=== PATIENT | male | born 1965 | race Caucasian/White ===

== ENCOUNTER 2017-08-03 15:05 | Inpatient (IN) | payer SELFPAY ==
[~2017-08-03] VITALS: Ht 175.3 cm; Wt 58.6 kg
--- NOTE | ~2017-08-03 | EC ---
PATIENT:DANIA LANDRUM DATE OF SERVICE: 08/03/17 SEX: M MEDICAL RECORD: [id number] DATE OF : 69 LOCATION:D.M2 D.213 AGE OF PATIENT: 52 ADMISSION DATE: 08/03/17 REFERRING PHYSICIAN: INTERPRETING PHYSICIAN: XIN MARISCAL MD ECHOCARDIOGRAM REPORT ECHO CHARGES 4 ECHO COMPLETE CLINICAL DIAGNOSIS: A-FIB ECHOCARDIOGRAPHIC MEASUREMENTS (adult normal given) AC root (d.<3.7cm) 3.5 cm LV Septum d (<1.2 cm> 0.9 cm Valve Excursion 1.8 cm LV Septum (systole) 1.4 cm Left Atria (s.<4.0cm> 3.3 cm LVPW d(<1.2cm) 1.1 cm RV (d.<2.3cm) 2.1 cm LVPW (sytole) 1.6 cm LV diastole(<5.6CM) 4.7 cm MV E-F(>70mm/sec) cm LV systole 2.7 cm LVOT Diameter 2.1 cm MV exc.(>10mm) cm Est.ejection fraction (50-75%) % Pericardial Effusion N DOPPLER: LVIT cm/sec A 50.0 cm/sec E 90.0 cm/sec LA cm/sec RVSP 23.4 mmHg LVOT 172 cm/sec AOP1/2T m/s Asc. Ao 165 cm/sec RVOT 45.0 cm/sec RA cm/sec PA 109 cm/sec AV Gradient Peak 11.0 mmHg AV Mean 5.7 mmHg AV Area 3.0 cm MV Gradient Peak 4.4 mmHg MV Mean 1.8 mmHg MV Area cm COMMENTS: Press Box Custodian: Ashwini MEADOWSOE Social Media Marketing Specialist: 4 Dr. Mariscal TAPE# PACS DATE OF SERVICE: 08/04/2017 PROCEDURE: Transthoracic echocardiogram. FINDINGS: 1. The left ventricle is hyperdynamic with evidence of mild concentric left ventricular hypertrophy with inflow characteristics that are normal. The ejection fraction is 65% to 70% without regional wall motion abnormalities. 2. The left atrium is normal in size and normal in function. 3. The aortic valve is normal. ECHOCARDIOGRAM REPORT [id number] DANIA LANDRUM 4. The mitral valve is normal. 5. The tricuspid valve has trace tricuspid regurgitation. The RVSP is normal. 6. The pericardium is normal. 7. The pulmonic valve is normal. 8. The right atrium is normal. 9. The right ventricle is normal in size and function. CONCLUSION: The patient has evidence of hyperdynamic LV systolic function. There is some hint that the patient may be volume contracted by IVC that looks to be smaller. Otherwise, normal echocardiogram. TRANSINT:[id number] Voice Confirmation ID: [id number] DOCUMENT ID: [id number] 08/10/2017 Edited to correct date of service, dm. XIN MARISCAL MD at 1038 CC: [id number] DICTATION DATE: 08/05/17 1020 COMPOSITION ROLL MAKER AND CUTTER: 08/05/17 1117 DIS IN 08/14/17 [address] [id number] [place] [address]
--- NOTE | ~2017-08-03 | HP ---
PATIENT: DANIA LANDRUM MEDICAL RECORD: [id number] ACCOUNT: [id number] LOCATION:[facility] D.2309 : 69 ADMISSION DATE: 08/03/17 HISTORY AND PHYSICAL EXAMINATION HISTORY OF PRESENT ILLNESS: A 52-year-old male presented to the Emergency Room upon day of admission with complaint of tachycardia and not feeling well for the last week and a half. Patient was evaluated in the Emergency Room and was found to have evidence of left lower lobe pneumonia and the patient needs to be hospitalized for appropriate intervention. The patient was also found on laboratory be in DKA. He is a type 1 diabetic and has been having difficulty with his sugars over the last week. He states he has had fever, chills, and been trying to working away. He is presently an ill-appearing 52-year-old male that is mildly confused and most of the information was obtained from old chart and family members. PAST MEDICAL HISTORY: Significant for pancreatitis, type 1 diabetes mellitus, and arrhythmia. PAST SURGICAL HISTORY: Includes a Whipple procedure. SOCIAL HISTORY: The patient quit smoking 2 weeks ago. He denies any alcohol use. ALLERGIES: No known drug allergies. MEDICATIONS: Listed on MAR sheet. REVIEW OF SYSTEMS: Indicates he has had fever, chills, cough, nausea, and vomiting. He also has had diarrhea. He has had thick emesis, but no bright red blood over the last 24 hours. PHYSICAL EXAMINATION: GENERAL: The patient is a malnourished, thin, frail, 52-year-old male with respiratory distress. VITAL SIGNS: Pulse ox is 90% on 4 liters. HEENT: His pupils are equal, round, reactive to light. Extraocular movements are intact. Oral cavity and oropharynx shows tacky mucous membranes. NECK: No cervical or pharyngeal adenopathy. No nuchal rigidity. HEART: Regular rate and rhythm with a tachyarrhythmia. CHEST: He has evidence of AFib with rapid response on the telemetry, heart rate initially was 140. He is on a Cardizem drip at the present time. LUNGS: Have coarse rhonchi heard in all lung cabral with diminished in the left base. ABDOMEN: Soft. Surgical scars noted, nontender, positive bowel sounds. No hepatosplenomegaly, no masses. EXTREMITIES: Cachectic type appearance noted. LABORATORY DATA: Chest x-ray shows left lower lobe infiltrate. EKG shows atrial fibrillation with rapid response. ABGs show pH 7.23, pCO2 of 31, pO2 of 71, bicarbonate 14 and 9% saturation. White count 6000, H&H 17 and 49 and platelets of 125, BUN is 40, creatinine 1.8, glucose of 596. Sodium is low at 129, CO2 of 15. Elevated liver functions are noted with an ALT of 123. AST of 105. Lactic acid is 2.8. HISTORY AND PHYSICAL [id number] DANIA LANDRUM ASSESSMENT AND PLAN: 1. Pneumonia. 2. Type 1 diabetes mellitus. 3. Diabetic ketoacidosis. 4. Hyponatremia. 5. Pneumonia. 6. Flu is positive. 7. Malnutrition. 8. Sepsis. 9. Hypoxia. 10. Weight loss. PLAN: The patient will be admitted to the ICU and start insulin drip, updraft treatments. He has already received Rocephin and Levaquin. We will start vancomycin 1 gram times 1 dose and pulmonary consultation for critical care with Dr. Adams. I have discussed the case with him. The patient is on insulin drip, IV fluids, vigorously. We will check laboratory appropriately and follow the patient. TRANSINT:[id number] Voice Confirmation ID: [id number] DOCUMENT ID: [id number] CASSI HUDDLESTON MD at 1613 CC: [id number] DICTATION DATE: 08/03/171904 MARKETING UNDERWRITER: 08/03/172000 ADM IN [facility] [address] [place] [address]
[2017-08-03 15:58] LABS: BASOPHILS 0.3 % (0-2); EOSINOPHILS 0 % (0-7); HEMATOCRIT 49.9 % (42.0-54.0); IMMATURE GRANULOCYTES 0.3 % (0-5); LYMPHOCYTES 6.7 % (15-50); MCH 31.4 pg (26.0-34.0); MCHC 34.1 g/dL (31.0-37.0); MCV 92.1 fL (80.0-100.0); MEAN PLATELET VOLUME 12.6 fL (7.4-10.4); MONOCYTES 11.1 % (2-11); NEUTROPHILS 81.6 % (40-80); RBC 5.42 10x6/uL (4.20-6.10); RDW 13.7 % (11.5-14.5); WBC 6.4 10x3/uL (4.8-10.8)
[2017-08-03 16:00] LABS: PLATELET COUNT 125 10x3/uL (130-400)
[2017-08-03 16:23] LABS: ALBUMIN 3.1 g/dL (3.4-5.0); ANION GAP 29.5 mmol/L (8-16); BILIRUBIN - TOTAL 1.29 mg/dL (0.2-1.3); CALCIUM 10.2 mg/dL (8.5-10.1); CARBON DIOXIDE 15.3 mmol/L (21.0-32.0); CREATININE - SERUM 1.8 mg/dL (0.6-1.3); POTASSIUM - SERUM 4.8 mmol/L (3.5-5.1); PROTEIN - SERUM 7.1 g/dL (6.4-8.2)
[2017-08-03 16:45] LABS: TROPONIN-I 0.028 ng/mL (0.000-0.060)
[2017-08-03 20:57] LABS: CKMB 5.9 U/L (0.0-3.6); CREATINE KINASE 203 UL (21-232)
[2017-08-03 21:00] VITALS: BP 144/97
[2017-08-03 22:00] VITALS: BP 124/72
[2017-08-03 23:00] VITALS: BP 126/78
[2017-08-03 23:39] VITALS: BP 153/97; BMI 18.5
[2017-08-04] VITALS (24 sets, daily range): BP systolic 95–146; BP diastolic 61–87; Ht 175.3 cm; Wt 58.6 kg
[2017-08-04 04:15] LABS: BASOPHILS 0.5 % (0-2); EOSINOPHILS 0 % (0-7); HEMATOCRIT 43.5 % (42.0-54.0); HEMOGLOBIN 15.5 g/dL (13.5-17.5); HEMOGLOBIN A1C 9.8 % (4.8-6.0); IMMATURE GRANULOCYTES 0.7 % (0-5); LYMPHOCYTES 9.8 % (15-50); MCH 30.9 pg (26.0-34.0); MCHC 35.6 g/dL (31.0-37.0); MCV 86.8 fL (80.0-100.0); MEAN PLATELET VOLUME 11.8 fL (7.4-10.4); MONOCYTES 3.1 % (2-11); NEUTROPHILS 85.9 % (40-80); PLATELET COUNT 102 10x3/uL (130-400); RBC 5.01 10x6/uL (4.20-6.10); RDW 12.9 % (11.5-14.5); WBC 4.2 10x3/uL (4.8-10.8)
[2017-08-04 04:44] LABS: ALBUMIN 2.4 g/dL (3.4-5.0); ALKALINE PHOSPHATASE 74 U/L (46-116); AMYLASE - SERUM 6 U/L (25-115); BILIRUBIN - TOTAL 0.84 mg/dL (0.2-1.3); CALCIUM 8.9 mg/dL (8.5-10.1); CHLORIDE - SERUM 105 mmol/L (98-107); MAGNESIUM - SERUM 1.5 mg/dL (1.8-2.4); PRO BNP 4481 pg/mL (0-125); SODIUM 140 mmol/L (136-145); VANCOMYCIN - TROUGH 5.5 ug/mL (10.0-20.0)
[2017-08-04 04:49] LABS: ALT (SGPT) 81 U/L (10-68); CALC OSMOLALITY 283 mosm/kg (275-300); CARBON DIOXIDE 26.4 mmol/L (21.0-32.0); CREATINE KINASE 111 UL (21-232); CREATININE - SERUM 0.8 mg/dL (0.6-1.3); GLUCOSE 134 mg/dL (74-106); LIPASE 29 U/L (73-393); PHOSPHOROUS 1.1 mg/dL (2.5-4.9); POTASSIUM - SERUM 3.3 mmol/L (3.5-5.1); PROTEIN - SERUM 5.1 g/dL (6.4-8.2); TROPONIN-I 0.044 ng/mL (0.000-0.060); UREA NITROGEN 20 mg/dL (7-18); eGFR NON AFRICAN AMERICAN > 90 mL/min (90-120)
[2017-08-04 08:43] LABS: CKMB 1.7 U/L (0.0-3.6); CREATINE KINASE 67 UL (21-232); TROPONIN-I 0.035 ng/mL (0.000-0.060)
[2017-08-04] MEDS ORDERED: ZOLOFT50 MG PO (10:21)
[2017-08-04] MEDS ORDERED: ZENPEP DR 5,001 EACH PO (10:21)
[2017-08-04] MEDS ORDERED: GLUCOPHAGE1000 MG PO (10:22)
[2017-08-04] MEDS ORDERED: AMBIEN10 MG PO (18:35)
[2017-08-04] MEDS ORDERED: VIAGRA100 MG PO (18:38)
[2017-08-04] MEDS ORDERED: TOUJEO SOL300 UNIT/1 SC (18:39)
[2017-08-04] MEDS ORDERED: HUMALOG 30100 UNITS/ SC (18:39)
[2017-08-04] MEDS ORDERED: HYDROCODONE-APA1 TAB PO (18:39)
[2017-08-04 20:16] LABS: POTASSIUM - SERUM 3.6 mmol/L (3.5-5.1)
[2017-08-04 20:17] LABS: PHOSPHOROUS 1.7 mg/dL (2.5-4.9)
[2017-08-05] VITALS (24 sets, daily range): BP systolic 107–139; BP diastolic 72–93
[2017-08-05 04:24] LABS: BASOPHILS 0.8 % (0-2); EOSINOPHILS 0 % (0-7); HEMATOCRIT 38.5 % (42.0-54.0); HEMOGLOBIN 13.7 g/dL (13.5-17.5); LYMPHOCYTES 7.6 % (15-50); MCH 30.8 pg (26.0-34.0); MCHC 35.6 g/dL (31.0-37.0); MCV 86.5 fL (80.0-100.0); MEAN PLATELET VOLUME 12.1 fL (7.4-10.4); MONOCYTES 3.9 % (2-11); NEUTROPHILS 86.7 % (40-80); PLATELET COUNT 95 10x3/uL (130-400); RBC 4.45 10x6/uL (4.20-6.10); RDW 13.1 % (11.5-14.5)
[2017-08-05 04:27] LABS: WBC 7.9 10x3/uL (4.8-10.8)
[2017-08-05 04:49] LABS: ALKALINE PHOSPHATASE 86 U/L (46-116); ALT (SGPT) 64 U/L (10-68); BILIRUBIN - TOTAL 0.96 mg/dL (0.2-1.3); CALC OSMOLALITY 282 mosm/kg (275-300); CALCIUM 8.5 mg/dL (8.5-10.1); CARBON DIOXIDE 25.2 mmol/L (21.0-32.0); CHLORIDE - SERUM 105 mmol/L (98-107); CREATININE - SERUM 0.7 mg/dL (0.6-1.3); GLUCOSE 166 mg/dL (74-106); MAGNESIUM - SERUM 1.4 mg/dL (1.8-2.4); POTASSIUM - SERUM 3.2 mmol/L (3.5-5.1); PROTEIN - SERUM 5.3 g/dL (6.4-8.2); SODIUM 140 mmol/L (136-145); eGFR NON AFRICAN AMERICAN > 90 mL/min (90-120)
[2017-08-05 04:50] LABS: PHOSPHOROUS 1.5 mg/dL (2.5-4.9); UREA NITROGEN 12 mg/dL (7-18)
[2017-08-06] VITALS (23 sets, daily range): BP systolic 96–148; BP diastolic 62–99
[2017-08-06 05:20] LABS: BASOPHILS 0.5 % (0-2); EOSINOPHILS 0.2 % (0-7); HEMATOCRIT 37.6 % (42.0-54.0); HEMOGLOBIN 13.3 g/dL (13.5-17.5); IMMATURE GRANULOCYTES 0.3 % (0-5); LYMPHOCYTES 8.1 % (15-50); MCHC 35.4 g/dL (31.0-37.0); MCV 87.6 fL (80.0-100.0); MONOCYTES 5.2 % (2-11); NEUTROPHILS 85.7 % (40-80); PLATELET COUNT 96 10x3/uL (130-400); RBC 4.29 10x6/uL (4.20-6.10); RDW 13.3 % (11.5-14.5)
[2017-08-06 05:27] LABS: WBC 9.9 10x3/uL (4.8-10.8)
[2017-08-06 05:44] LABS: INR 1.45 (0.85-1.17); PROTIME 17.2 SECONDS (11.6-15.0)
[2017-08-06 05:45] LABS: APTT 47.7 SECONDS (22.8-39.4)
[2017-08-06 05:59] LABS: D-DIMER-QUANTITATIVE 4.02 ug/mLFEU (0.20-0.54)
[2017-08-06 06:02] LABS: ALBUMIN 1.8 g/dL (3.4-5.0); ALKALINE PHOSPHATASE 110 U/L (46-116); BILIRUBIN - TOTAL 1.04 mg/dL (0.2-1.3); CALCIUM 7.8 mg/dL (8.5-10.1); CARBON DIOXIDE 24.2 mmol/L (21.0-32.0); CHLORIDE - SERUM 104 mmol/L (98-107); CREATININE - SERUM 0.7 mg/dL (0.6-1.3); LDH 278 U/L (85-227); MAGNESIUM - SERUM 1.6 mg/dL (1.8-2.4); PROTEIN - SERUM 5.2 g/dL (6.4-8.2); SODIUM 139 mmol/L (136-145); eGFR NON AFRICAN AMERICAN > 90 mL/min (90-120)
[2017-08-06 06:04] LABS: ALT (SGPT) 47 U/L (10-68); CALC OSMOLALITY 287 mosm/kg (275-300); GLUCOSE 263 mg/dL (74-106); PHOSPHOROUS 2.5 mg/dL (2.5-4.9); UREA NITROGEN 16 mg/dL (7-18)
[2017-08-07] VITALS (11 sets, daily range): BP systolic 105–134; BP diastolic 58–87
[2017-08-07 04:30] LABS: BASOPHILS 0.2 % (0-2); EOSINOPHILS 0.5 % (0-7); HEMATOCRIT 38.3 % (42.0-54.0); HEMOGLOBIN 13.6 g/dL (13.5-17.5); IMMATURE GRANULOCYTES 0.5 % (0-5); LYMPHOCYTES 7.9 % (15-50); MCHC 35.5 g/dL (31.0-37.0); MCV 87.2 fL (80.0-100.0); MEAN PLATELET VOLUME 11.1 fL (7.4-10.4); MONOCYTES 5.8 % (2-11); NEUTROPHILS 85.1 % (40-80); PLATELET COUNT 91 10x3/uL (130-400); RBC 4.39 10x6/uL (4.20-6.10); RDW 13.4 % (11.5-14.5)
[2017-08-07 04:53] LABS: CALCIUM 7.4 mg/dL (8.5-10.1); CARBON DIOXIDE 28.5 mmol/L (21.0-32.0); CHLORIDE - SERUM 103 mmol/L (98-107); CREATININE - SERUM 0.7 mg/dL (0.6-1.3); MAGNESIUM - SERUM 1.7 mg/dL (1.8-2.4); POTASSIUM - SERUM 3.6 mmol/L (3.5-5.1); SODIUM 138 mmol/L (136-145); eGFR NON AFRICAN AMERICAN > 90 mL/min (90-120)
[2017-08-07 04:55] LABS: CALC OSMOLALITY 279 mosm/kg (275-300); GLUCOSE 189 mg/dL (74-106); PHOSPHOROUS 3.3 mg/dL (2.5-4.9); UREA NITROGEN 11 mg/dL (7-18)
[2017-08-08 04:00] VITALS: BP 130/72
[2017-08-08 09:03] VITALS: BP 121/77
[2017-08-08 13:25] VITALS: BP 121/73
[2017-08-08 16:39] VITALS: BP 116/70
[2017-08-08 19:00] VITALS: BP 131/81
[2017-08-09 04:00] VITALS: BP 135/81
[2017-08-09 05:54] LABS: BASOPHILS 0.1 % (0-2); EOSINOPHILS 0.7 % (0-7); HEMATOCRIT 35.5 % (42.0-54.0); HEMOGLOBIN 12.8 g/dL (13.5-17.5); IMMATURE GRANULOCYTES 0.6 % (0-5); LYMPHOCYTES 8.3 % (15-50); MCH 31.1 pg (26.0-34.0); MCHC 36.1 g/dL (31.0-37.0); MCV 86.2 fL (80.0-100.0); MEAN PLATELET VOLUME 11.5 fL (7.4-10.4); NEUTROPHILS 86.3 % (40-80); RBC 4.12 10x6/uL (4.20-6.10); RDW 13.3 % (11.5-14.5); WBC 11.9 10x3/uL (4.8-10.8)
[2017-08-09 06:02] LABS: PLATELET COUNT 118 10x3/uL (130-400)
[2017-08-09 06:12] LABS: CALC OSMOLALITY 265 mosm/kg (275-300); CALCIUM 7.2 mg/dL (8.5-10.1); CHLORIDE - SERUM 100 mmol/L (98-107); CREATININE - SERUM 0.6 mg/dL (0.6-1.3); POTASSIUM - SERUM 3.3 mmol/L (3.5-5.1); SODIUM 134 mmol/L (136-145); UREA NITROGEN 7 mg/dL (7-18); eGFR NON AFRICAN AMERICAN > 90 mL/min (90-120)
[2017-08-09 06:26] LABS: GLUCOSE 94 mg/dL (74-106)
[2017-08-09 08:33] VITALS: BP 120/76
[2017-08-09 12:03] VITALS: BP 117/75
[2017-08-09 16:02] VITALS: BP 115/75
[2017-08-09 21:43] VITALS: BP 118/69
[2017-08-10 06:18] LABS: BASOPHILS 0.1 % (0-2); EOSINOPHILS 0.5 % (0-7); HEMATOCRIT 37.9 % (42.0-54.0); HEMOGLOBIN 13.3 g/dL (13.5-17.5); IMMATURE GRANULOCYTES 0.6 % (0-5); LYMPHOCYTES 7.1 % (15-50); MCH 30.6 pg (26.0-34.0); MCHC 35.1 g/dL (31.0-37.0); MCV 87.3 fL (80.0-100.0); MONOCYTES 3.5 % (2-11); NEUTROPHILS 88.2 % (40-80); PLATELET COUNT 129 10x3/uL (130-400); RBC 4.34 10x6/uL (4.20-6.10); RDW 13.3 % (11.5-14.5); WBC 15.7 10x3/uL (4.8-10.8)
[2017-08-10 06:34] LABS: CALC OSMOLALITY 269 mosm/kg (275-300); CALCIUM 7.1 mg/dL (8.5-10.1); CARBON DIOXIDE 25.8 mmol/L (21.0-32.0); CHLORIDE - SERUM 104 mmol/L (98-107); CREATININE - SERUM 0.6 mg/dL (0.6-1.3); GLUCOSE 98 mg/dL (74-106); SODIUM 136 mmol/L (136-145); UREA NITROGEN 6 mg/dL (7-18); eGFR NON AFRICAN AMERICAN > 90 mL/min (90-120)
[2017-08-10 06:35] LABS: POTASSIUM - SERUM 4.2 mmol/L (3.5-5.1)
[2017-08-10 06:45] VITALS: BP 131/69
[2017-08-10 08:28] VITALS: BP 107/70
[2017-08-10 12:48] VITALS: BP 99/69
[2017-08-10 16:09] VITALS: BP 95/62
[2017-08-10 23:00] VITALS: BP 115/69
[2017-08-11 06:23] VITALS: BP 114/73
[2017-08-11 07:48] LABS: BASOPHILS 0.1 % (0-2); EOSINOPHILS 0.3 % (0-7); HEMATOCRIT 33.9 % (42.0-54.0); HEMOGLOBIN 11.8 g/dL (13.5-17.5); IMMATURE GRANULOCYTES 0.4 % (0-5); LYMPHOCYTES 6.7 % (15-50); MCH 30.6 pg (26.0-34.0); MCHC 34.8 g/dL (31.0-37.0); MCV 87.8 fL (80.0-100.0); MEAN PLATELET VOLUME 10.7 fL (7.4-10.4); MONOCYTES 2.7 % (2-11); NEUTROPHILS 89.8 % (40-80); PLATELET COUNT 149 10x3/uL (130-400); RBC 3.86 10x6/uL (4.20-6.10); RDW 13.4 % (11.5-14.5); WBC 14.4 10x3/uL (4.8-10.8)
[2017-08-11 07:59] LABS: CALCIUM 7.2 mg/dL (8.5-10.1); CARBON DIOXIDE 29.1 mmol/L (21.0-32.0); CHLORIDE - SERUM 100 mmol/L (98-107); PHOSPHOROUS 2.8 mg/dL (2.5-4.9); POTASSIUM - SERUM 4.1 mmol/L (3.5-5.1); SODIUM 132 mmol/L (136-145)
[2017-08-11 08:00] VITALS: BP 125/76
[2017-08-11 08:00] LABS: CALC OSMOLALITY 272 mosm/kg (275-300); CREATININE - SERUM 0.8 mg/dL (0.6-1.3); GLUCOSE 268 mg/dL (74-106); UREA NITROGEN 10 mg/dL (7-18); eGFR NON AFRICAN AMERICAN > 90 mL/min (90-120)
[2017-08-11 12:00] VITALS: BP 109/73
[2017-08-11 16:00] VITALS: BP 93/53
[2017-08-11 21:36] VITALS: BP 101/64
[2017-08-12 01:29] VITALS: BP 105/64
[2017-08-12 05:37] LABS: BASOPHILS 0.1 % (0-2); EOSINOPHILS 0.2 % (0-7); HEMATOCRIT 34.9 % (42.0-54.0); HEMOGLOBIN 12.1 g/dL (13.5-17.5); IMMATURE GRANULOCYTES 0.2 % (0-5); MCH 30.6 pg (26.0-34.0); MCHC 34.7 g/dL (31.0-37.0); MCV 88.1 fL (80.0-100.0); MEAN PLATELET VOLUME 10.8 fL (7.4-10.4); MONOCYTES 3.1 % (2-11); NEUTROPHILS 89.4 % (40-80); RBC 3.96 10x6/uL (4.20-6.10); RDW 13.1 % (11.5-14.5); WBC 16.4 10x3/uL (4.8-10.8)
[2017-08-12 05:40] LABS: PLATELET COUNT 184 10x3/uL (130-400)
[2017-08-12 05:50] LABS: CALC OSMOLALITY 267 mosm/kg (275-300); CARBON DIOXIDE 26.9 mmol/L (21.0-32.0); CHLORIDE - SERUM 100 mmol/L (98-107); CREATININE - SERUM 0.7 mg/dL (0.6-1.3); GLUCOSE 193 mg/dL (74-106); POTASSIUM - SERUM 4.2 mmol/L (3.5-5.1); SODIUM 132 mmol/L (136-145); UREA NITROGEN 8 mg/dL (7-18); eGFR NON AFRICAN AMERICAN > 90 mL/min (90-120)
[2017-08-12 06:13] LABS: APPEARANCE CLEAR (CLEAR); BILIRUBIN NEGATIVE (NEGATIVE); COLOR STRAW (YELLOW); GLUCOSE NEGATIVE (NEGATIVE); KETONE NEGATIVE (NEGATIVE); NITRITE NEGATIVE (NEGATIVE); PROTEIN NEGATIVE (NEGATIVE); SPECIFIC GRAVITY 1.005 (1.005-1.020); UROBILINOGEN NORMAL (NORMAL)
[2017-08-12 10:22] VITALS: BP 97/69
[2017-08-12 13:30] VITALS: BP 88/60
[2017-08-12 13:42] VITALS: BP 80/49
[2017-08-12 15:39] VITALS: BP 102/60
[2017-08-12 20:00] VITALS: BP 98/65
[2017-08-13] VITALS: BP 111/75
[2017-08-13 04:00] VITALS: BP 118/74
[2017-08-13 06:18] LABS: BASOPHILS 0.1 % (0-2); EOSINOPHILS 0.4 % (0-7); HEMATOCRIT 34.9 % (42.0-54.0); IMMATURE GRANULOCYTES 0.4 % (0-5); LYMPHOCYTES 8.3 % (15-50); MCH 30.8 pg (26.0-34.0); MCHC 34.4 g/dL (31.0-37.0); MCV 89.7 fL (80.0-100.0); MEAN PLATELET VOLUME 11.1 fL (7.4-10.4); MONOCYTES 4.4 % (2-11); NEUTROPHILS 86.4 % (40-80); PLATELET COUNT 206 10x3/uL (130-400); RBC 3.89 10x6/uL (4.20-6.10); RDW 13.3 % (11.5-14.5); WBC 16.1 10x3/uL (4.8-10.8)
[2017-08-13 06:40] LABS: CALC OSMOLALITY 269 mosm/kg (275-300); CALCIUM 7.5 mg/dL (8.5-10.1); CARBON DIOXIDE 25.9 mmol/L (21.0-32.0); CHLORIDE - SERUM 102 mmol/L (98-107); CREATININE - SERUM 0.7 mg/dL (0.6-1.3); SODIUM 135 mmol/L (136-145); UREA NITROGEN 10 mg/dL (7-18); eGFR NON AFRICAN AMERICAN > 90 mL/min (90-120)
[2017-08-13 06:49] LABS: GLUCOSE 115 mg/dL (74-106)
[2017-08-13 08:04] VITALS: BP 112/73
[2017-08-13 12:09] VITALS: BP 98/57
[2017-08-13 16:28] VITALS: BP 98/68
[2017-08-13 20:00] VITALS: BP 105/66
[2017-08-14 04:00] VITALS: BP 100/66
[2017-08-14 08:14] VITALS: BP 108/72
[2017-08-14] MEDS ORDERED: FLORAJEN3 CAPS460 MG PO (12:51)
[2017-08-14] MEDS ORDERED: LEVAQUIN750 MG PO (13:01)
[2017-08-14] MEDS ORDERED: VIBRAMYCIN 100100 MG PO (13:01)
[2017-08-14] MEDS ORDERED: ELIQUIS2.5 MG PO (13:26)
[2017-08-14 13:27] LABS: BASOPHILS 0.2 % (0-2); EOSINOPHILS 0.3 % (0-7); HEMATOCRIT 35.5 % (42.0-54.0); IMMATURE GRANULOCYTES 0.3 % (0-5); LYMPHOCYTES 13.2 % (15-50); MCH 30.5 pg (26.0-34.0); MCHC 33.8 g/dL (31.0-37.0); MCV 90.1 fL (80.0-100.0); MEAN PLATELET VOLUME 9.9 fL (7.4-10.4); RBC 3.94 10x6/uL (4.20-6.10); RDW 13.1 % (11.5-14.5); WBC 12.8 10x3/uL (4.8-10.8)
[2017-08-14 13:36] LABS: PLATELET COUNT 249 10x3/uL (130-400)
[2017-08-14 14:13] LABS: CALC OSMOLALITY 270 mosm/kg (275-300); CALCIUM 7.4 mg/dL (8.5-10.1); CARBON DIOXIDE 27.9 mmol/L (21.0-32.0); CHLORIDE - SERUM 101 mmol/L (98-107); GLUCOSE 130 mg/dL (74-106); POTASSIUM - SERUM 3.6 mmol/L (3.5-5.1); SODIUM 135 mmol/L (136-145); UREA NITROGEN 10 mg/dL (7-18)
[2017-08-14 14:21] LABS: CREATININE - SERUM 0.9 mg/dL (0.6-1.3); eGFR NON AFRICAN AMERICAN > 90 mL/min (90-120)
== END 2017-08-14 15:23 | disposition home or self-care (01) | DRG 871 ==
LOC: D.ER 15:05 → D.M2 17:31 → D.ICU 17:31 → D.M2 08-07 14:30
PROVIDERS: Emergency Medicine; Family Medicine; Internal Medicine Nephrology; Internal Medicine Pulmonary Disease
DX: A41.89 Other specified sepsis (principal); J11.00 Influenza due to unidentified influenza virus with unspecified type of pneumonia; E10.10 Type 1 diabetes mellitus with ketoacidosis without coma; J96.01 Acute respiratory failure with hypoxia; E46 Unspecified protein-calorie malnutrition; Z68.1 Body mass index [BMI] 19.9 or less, adult; E87.1 Hypo-osmolality and hyponatremia; N17.9 Acute kidney failure, unspecified; J11.2 Influenza due to unidentified influenza virus with gastrointestinal manifestations; J11.1 Influenza due to unidentified influenza virus with other respiratory manifestations; I48.91 Unspecified atrial fibrillation; D69.59 Other secondary thrombocytopenia

== ENCOUNTER 2018-01-15 12:06 | Inpatient (IN) | payer SELFPAY ==
[~2018-01-15] VITALS: Ht 175.3 cm; Wt 59.5 kg
--- NOTE | ~2018-01-15 | OP ---
PATIENT NAME: DANIA LANDRUM MEDICAL RECORD: [id number] :69 LOCATION:D.MS [facility]221[place]a ADMISSION DATE:01/15/18 SURGEON: CAMI HOFFMANN MD DATE OF OPERATION: 01/18/2018 PREOPERATIVE DIAGNOSIS: Persistent left pneumothorax. POSTOPERATIVE DIAGNOSIS: Persistent left pneumothorax. PROCEDURE: Left 28-Syriac chest tube placement. SURGEON: Cami Hoffmann MD COMPENSATION AND BENEFITS MANAGER: None. BLOOD LOSS: Minimal. ANESTHESIA: Local with IV sedation. COMPLICATIONS: None. The risks, possible complications and alternatives to procedure were explained to the patient. He elects to proceed. I specifically discussed with him the possibility that the air leak would not resolve and he would require an operative procedure. OPERATIVE COURSE: The patient was conveyed to the operating room electively on 01/18/2018. General anesthesia was induced by the anesthesia staff. The patient was placed in the semi-lateral decubitus position with the left side up. The left chest was sterilely prepped and draped. I cut the sutures to the unwilling interventional radiologic placed chest tube. I then removed this chest tube in its entirety. I closed the small hole with a horizontal mattress 4-0 Vicryl Rapide suture. A transverse incision was then accomplished at approximately the level of the 7th intercostal space. I then entered the left hemithorax over a rib. I place my gloved finger into the left hemithorax and was able to feel the lung. I then advanced a 28-Syriac chest tube. It was advanced to 16 cm. It was sutured in place with a horizontal mattress 2-0 nylon and then another 2-0 nylon was applied around this for closure. The closure nylon was then affixed to the chest tube with bone wax. The chest tube was attached to the chest tube suction canister and a sterile dressing was applied. The patient was then conveyed to post-anesthesia care unit where he was in stable condition. TRANSINT:[id number] Voice Confirmation ID: [id number] DOCUMENT ID: [id number] OPERATIVE REPORT [id number] DANIA LANDRUM ROBERT MD at 1746 CC: NEHAL TURPIN [id number] DICTATION DATE: 01/18/18 1252 CARTON STENCILER: 01/18/18 1335 ADM IN [place] [address] [place] [address]
--- NOTE | ~2018-01-15 | OP ---
PATIENT NAME: DANIA LANDRUM MEDICAL RECORD: [id number] :69 LOCATION:[facility] ADMISSION DATE:01/15/18 SURGEON: SANTOS LYNCH MD DATE OF OPERATION: 01/23/2018 SURGEON: Santos yLnch MD WASTEWATER ANALYST: Willi Meyer MD ANESTHESIA: General endotracheal. OPERATION PERFORMED: 1. Left video-assisted thoracoscopy. 2. Lysis of adhesions. 3. Bleb resection, left upper lobe. 4. Lung biopsy, left lower lobe. 5. Bronchoscopy with bronchioalveolar lavage, right upper lobe. PREOPERATIVE DIAGNOSIS: Bronchopleural fistula. POSTOPERATIVE DIAGNOSIS: Bronchopleural fistula. INDICATION FOR OPERATION: Bronchopleural fistula. FINDINGS OF THE OPERATION: Blebs with air leak, left upper lobe. Specimens were sent for tissue cultures, aerobe, anaerobe, TB, and fungus. Bronchioalveolar lavage was sent for cultures, cytology was performed on the bronchioalveolar lavage and histology on the bleb resection and left lower lobe. ESTIMATED BLOOD LOSS: Less than 100 mL. DESCRIPTION OF PROCEDURE: After informed consent, adequate preoperative medication evaluation, the patient was brought to the operating room, placed on the table in supine position. After induction of general endotracheal anesthesia and application of appropriate monitoring devices, left chest was prepped and draped in sterile field, utilizing Betadine scrub, alcohol, and Betadine solution, a Betadine-impregnated drape was also used. A double lumen tube is in place and the patient had undergone bronchoscopy utilizing a ninth interspace, mid axillary line, a port was placed for the camera. The chest was examined and the adhesions examined. Under direct vision, anterior and posterior ports were placed. Utilizing the Harmonic scalpel, the adhesions were lysed. The blebs were then resected from the right upper lobe. The patient had a biopsy of the left lower lobe as well. These were sent for cultures and histology. Attention was then turned toward the parietal pleura, this was abraded utilizing Marlex mesh. Attention was then turned toward a talc pleurodesis, which was performed with a good result. The chest was again examined. The instrument counts and sponge counts were correct times 2. The chest tubes were placed, one anteriorly and superiorly, one posteriorly and more inferiorly. These were secured. The other port sites were closed with 2-0 Vicryl and skin carrington. Sterile dressings were applied. The instrument count and sponge counts were correct. The patient was then turned in the supine position. The double lumen endotracheal tube was then exchanged for a single lumen tube. The patient underwent bronchoscopy with a normal tracheobronchial tree. Bronchioalveolar lavage was performed in the right upper lobe. There OPERATIVE REPORT [id number] DANIA LANDRUM were cultures sent for aerobe, anaerobe, TB, and fungus as well as cytology. The patient tolerated the procedure well and was then transferred to the ICU in satisfactory condition. TRANSINT:[id number] Voice Confirmation ID: [id number] DOCUMENT ID: [id number] SANTOS LYNCH MD at 1358 CC: [id number] DICTATION DATE: 01/23/18 1214 SENIOR STRATEGY MANAGER: 01/23/18 1253 ADM IN [facility] [address] [place] [address]
--- NOTE | ~2018-01-15 | CN ---
PATIENT NAME:DANIA LANDRUM MEDICAL RECORD: [id number] : 69 LOCATION:D.MS [facility]2214 ADMIT DATE: 01/15/18 ACCOUNT: [id number] CONSULTING PHYSICIAN: JINNY ROSE MD REFERRING PHYSICIAN: RITA TURPIN MD DATE OF CONSULTATION: 01/15/2018 CONSULT REQUESTING PHYSICIAN: Rita Turpin MD REASON FOR CONSULTATION: Spontaneous pneumothorax. HISTORY OF PRESENT ILLNESS: Mr. Landrum is a 52-year-old gentleman who has a history of COPD and smoking history. According to the patient, he sprayed some pesticide at home 2 days ago and then he started coughing. He has worsening shortness of breath for the last 2 days. He also has some chest pain. The patient came into the ER, found out he has a large tension pneumothorax on the left. Denies any fever and chills. There is no cough, no sputum production as such. REVIEW OF SYSTEMS: As in history of present illness. PAST MEDICAL HISTORY: 1. Type 2 diabetes mellitus. 2. Chronic obstructive pulmonary disease. 3. Anxiety, depression. 4. Tobacco dependence syndrome. PAST SURGICAL HISTORY: Blind Whipple procedure in 2003. ALLERGIES: No known drug allergy. MEDICATIONS: On [employer] is reviewed. PERSONAL AND SOCIAL HISTORY: The patient still continues to smoke. He is a nondrinker. FAMILY HISTORY: Noncontributory. PHYSICAL EXAMINATION: GENERAL: Now, the patient is lying comfortably in bed. He is not in acute distress. VITAL SIGNS: The blood pressure is 128/76, pulse is 99, respiration is 16, temperature 97.3, and SpO2 of 95% on 2 liters nasal cannula. HEENT: Conjunctivae are pink. Sclerae are not icteric. NECK: Neck is supple, no JVD. CHEST: The chest excursion is minimal on both sides. There is no wheeze. There are crackles at the left base. The chest tube is in place. HEART: Rhythm regular, normal sound, no murmur. ABDOMEN: Abdomen is soft, bowel sounds present. No hepatosplenomegaly. RECTAL: Deferred. EXTREMITIES: No cyanosis, no clubbing, no pedal edema. SKIN: The skin is warm, normal turgor. CENTRAL NERVOUS SYSTEM: The patient is awake and alert. There are no obvious cranial nerve abnormality. The gait was not tested. CONSULT REPORT [id number] DANIA LANDRUM CHEST RADIOGRAPH: There is a tension pneumothorax on the left side. LABORATORY DATA: CBC: The WBC is 19.6, hemoglobin 16.1, hematocrit 45.7, the platelet count 353. Chemistry: Sodium 134, potassium 4.7, BUN is 34, creatinine is 1, glucose 441. IMPRESSION: 1. Left spontaneous tension pneumothorax. 2. Leukocytosis. 3. Chronic obstructive pulmonary disease without exacerbation. 4. Tobacco dependence syndrome. 5. Diabetes mellitus type 2. RECOMMENDATION: 1. Continue albuterol and ipratropium nebulizer, Brovana and budesonide nebulizer. I will hold on corticosteroids and start on Ancef empirically for Gram-positive cocci. 2. Check the CT scan of the chest. Check alpha-1 level. Follow up labs and chest radiograph. The chest tube per interventional radiology. Dr. Rita Turpin, thank you for involving me in the care of Mr. Landrum. TRANSINT:[id number] Voice Confirmation ID: [id number] DOCUMENT ID: [id number] JINNY ROSE MD at 1806 CC: [id number] DICTATION DATE: 01/15/18 182 PUMP SERVICE SUPERVISOR: 01/15/18 191 ADM IN [facility] [address] [place] [address]
[~2018-01-15 12:06] MED LIST: AMBIEN10 MG PO; ELIQUIS2.5 MG PO; FLORAJEN3 CAPS460 MG PO; GLUCOPHAGE1000 MG PO; HUMALOG 30100 UNITS/ SC; HYDROCODONE-APA1 TAB PO; LEVAQUIN750 MG PO; TOUJEO SOL300 UNIT/1 SC; VIAGRA100 MG PO; VIBRAMYCIN 100100 MG PO; ZENPEP DR 5,001 EACH PO; ZOLOFT50 MG PO
[2018-01-15 12:42] LABS: BASOPHILS 0.1 % (0-2); EOSINOPHILS 0 % (0-7); HEMATOCRIT 45.7 % (42.0-54.0); HEMOGLOBIN 16.1 g/dL (13.5-17.5); IMMATURE GRANULOCYTES 0.4 % (0-5); LYMPHOCYTES 6.4 % (15-50); MCH 30.4 pg (26.0-34.0); MCHC 35.2 g/dL (31.0-37.0); MCV 86.2 fL (80.0-100.0); MEAN PLATELET VOLUME 11.1 fL (7.4-10.4); MONOCYTES 7.3 % (2-11); NEUTROPHILS 85.8 % (40-80); RDW 13.7 % (11.5-14.5); WBC 19.6 10x3/uL (4.8-10.8)
[2018-01-15 12:47] LABS: PLATELET COUNT 353 10x3/uL (130-400)
[2018-01-15 12:51] LABS: APTT 37.3 SECONDS (22.8-39.4); INR 1.04 (0.85-1.17); PROTIME 13.2 SECONDS (11.6-15.0)
[2018-01-15 12:52] LABS: D-DIMER-QUANTITATIVE 0.84 ug/mLFEU (0.20-0.54)
[2018-01-15 13:18] LABS: ALBUMIN 3.6 g/dL (3.4-5.0); ALKALINE PHOSPHATASE 173 U/L (46-116); ALT (SGPT) 48 U/L (10-68); CALCIUM 9.9 mg/dL (8.5-10.1); CHLORIDE - SERUM 94 mmol/L (98-107); CREATINE KINASE 279 UL (21-232); PROTEIN - SERUM 9.5 g/dL (6.4-8.2); SODIUM 134 mmol/L (136-145); TROPONIN-I < 0.017 ng/mL (0.000-0.060); UREA NITROGEN 34 mg/dL (7-18); eGFR NON AFRICAN AMERICAN 84 mL/min (90-120)
[2018-01-15 13:44] LABS: CALC OSMOLALITY 294 mosm/kg (275-300); POTASSIUM - SERUM 4.7 mmol/L (3.5-5.1)
[2018-01-15 13:52] LABS: CKMB 11.8 U/L (0.0-3.6); GLUCOSE 441 mg/dL (74-106)
[2018-01-15] MEDS ORDERED: AMBIEN5 MG PO (17:09)
[2018-01-15 17:15] VITALS: BP 128/76; BMI 20.7
[2018-01-15 17:29] VITALS: BP 128/76
[2018-01-15 19:09] LABS: AMYLASE - SERUM 27 U/L (25-115)
[2018-01-15 19:16] LABS: LIPASE 29 U/L (73-393)
[2018-01-15 21:16] VITALS: BP 120/75
[2018-01-16] VITALS: BP 112/74
[2018-01-16 04:00] VITALS: BP 118/70
[2018-01-16 05:51] LABS: BASOPHILS 0.1 % (0-2); EOSINOPHILS 0.4 % (0-7); HEMATOCRIT 38.6 % (42.0-54.0); HEMOGLOBIN 13.1 g/dL (13.5-17.5); IMMATURE GRANULOCYTES 0.2 % (0-5); LYMPHOCYTES 11.4 % (15-50); MCHC 33.9 g/dL (31.0-37.0); MCV 85.6 fL (80.0-100.0); MEAN PLATELET VOLUME 9.9 fL (7.4-10.4); MONOCYTES 10.5 % (2-11); NEUTROPHILS 77.4 % (40-80); RBC 4.51 10x6/uL (4.20-6.10); RDW 13.4 % (11.5-14.5)
[2018-01-16 06:14] LABS: PLATELET COUNT 216 10x3/uL (130-400); WBC 11.2 10x3/uL (4.8-10.8)
[2018-01-16 06:26] LABS: ALBUMIN 2.7 g/dL (3.4-5.0); ALKALINE PHOSPHATASE 109 U/L (46-116); CALCIUM 8.4 mg/dL (8.5-10.1); CHLORIDE - SERUM 101 mmol/L (98-107); POTASSIUM - SERUM 4.4 mmol/L (3.5-5.1); SODIUM 140 mmol/L (136-145)
[2018-01-16 06:30] LABS: CALC OSMOLALITY 278 mosm/kg (275-300); CARBON DIOXIDE 31.3 mmol/L (21.0-32.0); CREATININE - SERUM 0.6 mg/dL (0.6-1.3); GLUCOSE 73 mg/dL (74-106); UREA NITROGEN 16 mg/dL (7-18); eGFR NON AFRICAN AMERICAN > 90 mL/min (90-120)
[2018-01-16 06:31] LABS: ALT (SGPT) 29 U/L (10-68); PROTEIN - SERUM 6.8 g/dL (6.4-8.2)
[2018-01-16 10:36] LABS: APPEARANCE CLEAR (CLEAR); BILIRUBIN NEGATIVE (NEGATIVE); COLOR YELLOW (YELLOW); GLUCOSE 100 mg/dL (NEGATIVE); KETONE MODERATE mg/dL (NEGATIVE); NITRITE NEGATIVE (NEGATIVE); PROTEIN NEGATIVE (NEGATIVE); UROBILINOGEN NORMAL (NORMAL)
[2018-01-16 14:29] VITALS: BMI 20.6
[2018-01-16 20:56] VITALS: BP 102/65
[2018-01-17 00:41] VITALS: BP 108/68
[2018-01-17 04:38] VITALS: BP 110/69
[2018-01-17 04:52] LABS: BASOPHILS 0.2 % (0-2); EOSINOPHILS 0.2 % (0-7); HEMOGLOBIN 12.6 g/dL (13.5-17.5); IMMATURE GRANULOCYTES 0.2 % (0-5); LYMPHOCYTES 13.7 % (15-50); MCH 29.2 pg (26.0-34.0); MCHC 34.1 g/dL (31.0-37.0); MCV 85.8 fL (80.0-100.0); MEAN PLATELET VOLUME 9.6 fL (7.4-10.4); MONOCYTES 12.3 % (2-11); NEUTROPHILS 73.4 % (40-80); PLATELET COUNT 182 10x3/uL (130-400); RBC 4.31 10x6/uL (4.20-6.10); RDW 13.1 % (11.5-14.5); WBC 9.4 10x3/uL (4.8-10.8)
[2018-01-17 05:22] LABS: ALBUMIN 2.3 g/dL (3.4-5.0); ALKALINE PHOSPHATASE 93 U/L (46-116); CALCIUM 8.1 mg/dL (8.5-10.1); CARBON DIOXIDE 34.3 mmol/L (21.0-32.0); CHLORIDE - SERUM 102 mmol/L (98-107); CREATININE - SERUM 0.6 mg/dL (0.6-1.3); PROTEIN - SERUM 6.3 g/dL (6.4-8.2); SODIUM 139 mmol/L (136-145); eGFR NON AFRICAN AMERICAN > 90 mL/min (90-120)
[2018-01-17 05:27] LABS: ALT (SGPT) 20 U/L (10-68); CALC OSMOLALITY 278 mosm/kg (275-300); GLUCOSE 133 mg/dL (74-106); POTASSIUM - SERUM 3.5 mmol/L (3.5-5.1); UREA NITROGEN 9 mg/dL (7-18)
[2018-01-17 08:41] VITALS: BP 95/64
[2018-01-17 09:44] VITALS: Ht 175.3 cm; Wt 59.5 kg
[2018-01-17 11:29] VITALS: BP 95/59
[2018-01-17 20:00] VITALS: BP 110/71
[2018-01-18] VITALS (7 sets, daily range): BP systolic 90–99; BP diastolic 53–72
[2018-01-18 04:57] LABS: BASOPHILS 0.3 % (0-2); EOSINOPHILS 2.8 % (0-7); HEMATOCRIT 39.5 % (42.0-54.0); HEMOGLOBIN 13.4 g/dL (13.5-17.5); IMMATURE GRANULOCYTES 0.2 % (0-5); LYMPHOCYTES 26.9 % (15-50); MCH 29.4 pg (26.0-34.0); MCHC 33.9 g/dL (31.0-37.0); MCV 86.6 fL (80.0-100.0); MEAN PLATELET VOLUME 9.7 fL (7.4-10.4); MONOCYTES 13.1 % (2-11); NEUTROPHILS 56.7 % (40-80); RBC 4.56 10x6/uL (4.20-6.10); RDW 13.2 % (11.5-14.5); WBC 10.2 10x3/uL (4.8-10.8)
[2018-01-18 05:04] LABS: PLATELET COUNT 261 10x3/uL (130-400)
[2018-01-18 05:29] LABS: ALBUMIN 2.4 g/dL (3.4-5.0); ALKALINE PHOSPHATASE 96 U/L (46-116); ALT (SGPT) 20 U/L (10-68); CALC OSMOLALITY 277 mosm/kg (275-300); CALCIUM 8.5 mg/dL (8.5-10.1); CARBON DIOXIDE 36.4 mmol/L (21.0-32.0); CHLORIDE - SERUM 102 mmol/L (98-107); CREATININE - SERUM 0.7 mg/dL (0.6-1.3); POTASSIUM - SERUM 3.3 mmol/L (3.5-5.1); PROTEIN - SERUM 6.9 g/dL (6.4-8.2); SODIUM 142 mmol/L (136-145); UREA NITROGEN 10 mg/dL (7-18); eGFR NON AFRICAN AMERICAN > 90 mL/min (90-120)
[2018-01-18 05:30] LABS: GLUCOSE 32 mg/dL (74-106)
[2018-01-19 04:07] VITALS: BP 95/60
[2018-01-19 05:20] LABS: BASOPHILS 0.1 % (0-2); EOSINOPHILS 5.1 % (0-7); HEMATOCRIT 35.6 % (42.0-54.0); HEMOGLOBIN 11.9 g/dL (13.5-17.5); IMMATURE GRANULOCYTES 0.1 % (0-5); LYMPHOCYTES 20.8 % (15-50); MCH 29.3 pg (26.0-34.0); MCHC 33.4 g/dL (31.0-37.0); MCV 87.7 fL (80.0-100.0); MEAN PLATELET VOLUME 9.7 fL (7.4-10.4); MONOCYTES 13.6 % (2-11); NEUTROPHILS 60.3 % (40-80); PLATELET COUNT 226 10x3/uL (130-400); RBC 4.06 10x6/uL (4.20-6.10); RDW 13.2 % (11.5-14.5)
[2018-01-19 05:23] LABS: WBC 6.8 10x3/uL (4.8-10.8)
[2018-01-19 05:37] LABS: ALBUMIN 2.2 g/dL (3.4-5.0); ALKALINE PHOSPHATASE 84 U/L (46-116); ALT (SGPT) 20 U/L (10-68); BILIRUBIN - TOTAL 0.32 mg/dL (0.2-1.3); CALCIUM 8.8 mg/dL (8.5-10.1); CARBON DIOXIDE 34.3 mmol/L (21.0-32.0); CHLORIDE - SERUM 102 mmol/L (98-107); CREATININE - SERUM 0.7 mg/dL (0.6-1.3); POTASSIUM - SERUM 3.6 mmol/L (3.5-5.1); PROTEIN - SERUM 6.4 g/dL (6.4-8.2); SODIUM 140 mmol/L (136-145); UREA NITROGEN 9 mg/dL (7-18); eGFR NON AFRICAN AMERICAN > 90 mL/min (90-120)
[2018-01-19 05:39] LABS: CALC OSMOLALITY 279 mosm/kg (275-300); GLUCOSE 137 mg/dL (74-106)
[2018-01-19 08:07] VITALS: BP 87/53
[2018-01-19 18:29] VITALS: BP 97/67
[2018-01-19 21:08] VITALS: BP 92/58
[2018-01-20 01:08] VITALS: BP 92/57
[2018-01-20 04:45] VITALS: BP 106/67
[2018-01-20 05:37] LABS: BASOPHILS 0.3 % (0-2); EOSINOPHILS 4.8 % (0-7); HEMATOCRIT 40.2 % (42.0-54.0); HEMOGLOBIN 13.1 g/dL (13.5-17.5); IMMATURE GRANULOCYTES 0.1 % (0-5); LYMPHOCYTES 24.9 % (15-50); MCHC 32.6 g/dL (31.0-37.0); MCV 89.1 fL (80.0-100.0); MEAN PLATELET VOLUME 9.7 fL (7.4-10.4); NEUTROPHILS 58.9 % (40-80); RBC 4.51 10x6/uL (4.20-6.10); RDW 13.3 % (11.5-14.5); WBC 7.5 10x3/uL (4.8-10.8)
[2018-01-20 05:57] LABS: ALBUMIN 2.4 g/dL (3.4-5.0); ALKALINE PHOSPHATASE 89 U/L (46-116); ALT (SGPT) 21 U/L (10-68); BILIRUBIN - TOTAL 0.42 mg/dL (0.2-1.3); CALCIUM 8.8 mg/dL (8.5-10.1); CARBON DIOXIDE 37.2 mmol/L (21.0-32.0); CHLORIDE - SERUM 103 mmol/L (98-107); CREATININE - SERUM 0.6 mg/dL (0.6-1.3); POTASSIUM - SERUM 3.9 mmol/L (3.5-5.1); PROTEIN - SERUM 7.1 g/dL (6.4-8.2); SODIUM 140 mmol/L (136-145); eGFR NON AFRICAN AMERICAN > 90 mL/min (90-120)
[2018-01-20 06:03] LABS: PLATELET COUNT 289 10x3/uL (130-400)
[2018-01-20 06:05] LABS: CALC OSMOLALITY 275 mosm/kg (275-300); GLUCOSE 80 mg/dL (74-106); UREA NITROGEN 6 mg/dL (7-18)
[2018-01-20 08:00] VITALS: BP 97/63
[2018-01-20 12:15] VITALS: BP 90/60
[2018-01-20 16:00] VITALS: BP 105/71
[2018-01-20 20:46] VITALS: BP 91/61
[2018-01-21 05:03] VITALS: BP 99/71
[2018-01-21 05:20] LABS: BASOPHILS 0.1 % (0-2); EOSINOPHILS 4.6 % (0-7); HEMATOCRIT 39.1 % (42.0-54.0); HEMOGLOBIN 12.8 g/dL (13.5-17.5); IMMATURE GRANULOCYTES 0.1 % (0-5); LYMPHOCYTES 24.6 % (15-50); MCH 29.4 pg (26.0-34.0); MCHC 32.7 g/dL (31.0-37.0); MCV 89.7 fL (80.0-100.0); MEAN PLATELET VOLUME 9.5 fL (7.4-10.4); MONOCYTES 9.9 % (2-11); NEUTROPHILS 60.7 % (40-80); PLATELET COUNT 282 10x3/uL (130-400); RBC 4.36 10x6/uL (4.20-6.10); RDW 13.2 % (11.5-14.5); WBC 7.6 10x3/uL (4.8-10.8)
[2018-01-21 05:28] LABS: ALBUMIN 2.1 g/dL (3.4-5.0); ALKALINE PHOSPHATASE 87 U/L (46-116); ALT (SGPT) 21 U/L (10-68); BILIRUBIN - TOTAL 0.24 mg/dL (0.2-1.3); CALCIUM 8.4 mg/dL (8.5-10.1); CARBON DIOXIDE 38.6 mmol/L (21.0-32.0); CHLORIDE - SERUM 101 mmol/L (98-107); CREATININE - SERUM 0.7 mg/dL (0.6-1.3); PROTEIN - SERUM 6.8 g/dL (6.4-8.2); SODIUM 141 mmol/L (136-145); eGFR NON AFRICAN AMERICAN > 90 mL/min (90-120)
[2018-01-21 05:45] LABS: CALC OSMOLALITY 281 mosm/kg (275-300); GLUCOSE 145 mg/dL (74-106); UREA NITROGEN 8 mg/dL (7-18)
[2018-01-21 08:41] VITALS: BP 99/66
[2018-01-21 13:04] VITALS: BP 97/64
[2018-01-21 16:39] VITALS: BP 99/59
[2018-01-21 20:43] VITALS: BP 87/58
[2018-01-21 23:44] VITALS: BP 91/54
[2018-01-22 04:22] VITALS: BP 99/65
[2018-01-22 07:03] LABS: BASOPHILS 0.5 % (0-2); HEMATOCRIT 31.5 % (42.0-54.0); HEMOGLOBIN 10.3 g/dL (13.5-17.5); IMMATURE GRANULOCYTES 0.6 % (0-5); LYMPHOCYTES 24.6 % (15-50); MCH 29.3 pg (26.0-34.0); MCHC 32.7 g/dL (31.0-37.0); MCV 89.5 fL (80.0-100.0); MEAN PLATELET VOLUME 10.4 fL (7.4-10.4); NEUTROPHILS 61.3 % (40-80); PLATELET COUNT 284 10x3/uL (130-400); RBC 3.52 10x6/uL (4.20-6.10); RDW 13.4 % (11.5-14.5); WBC 8.1 10x3/uL (4.8-10.8)
[2018-01-22 07:31] LABS: ALBUMIN 2.1 g/dL (3.4-5.0); ALKALINE PHOSPHATASE 82 U/L (46-116); ALT (SGPT) 19 U/L (10-68); CALC OSMOLALITY 277 mosm/kg (275-300); CARBON DIOXIDE 38.4 mmol/L (21.0-32.0); CHLORIDE - SERUM 103 mmol/L (98-107); CREATININE - SERUM 0.7 mg/dL (0.6-1.3); GLUCOSE 137 mg/dL (74-106); POTASSIUM - SERUM 4.4 mmol/L (3.5-5.1); PROTEIN - SERUM 5.5 g/dL (6.4-8.2); SODIUM 139 mmol/L (136-145); UREA NITROGEN 7 mg/dL (7-18); eGFR NON AFRICAN AMERICAN > 90 mL/min (90-120)
[2018-01-22 08:29] VITALS: BP 93/66
[2018-01-22 12:30] VITALS: BP 88/60
[2018-01-22 13:11] LABS: INR 1.07 (0.85-1.17); PROTIME 13.5 SECONDS (11.6-15.0)
[2018-01-22 13:12] LABS: APTT 40.7 SECONDS (22.8-39.4)
[2018-01-22 16:18] VITALS: BP 91/57
[2018-01-22 17:17] LABS: APPEARANCE CLEAR (CLEAR); BILIRUBIN NEGATIVE (NEGATIVE); COLOR YELLOW (YELLOW); GLUCOSE NEGATIVE (NEGATIVE); KETONE NEGATIVE (NEGATIVE); NITRITE NEGATIVE (NEGATIVE); PROTEIN NEGATIVE (NEGATIVE); UROBILINOGEN NORMAL (NORMAL)
[2018-01-22 20:25] VITALS: BP 89/58
[2018-01-23] VITALS (54 sets, daily range): BP systolic 85–120; BP diastolic 44–66
[2018-01-23 06:21] LABS: BASOPHILS 0.3 % (0-2); EOSINOPHILS 5.3 % (0-7); HEMATOCRIT 34.7 % (42.0-54.0); HEMOGLOBIN 11.3 g/dL (13.5-17.5); IMMATURE GRANULOCYTES 0.3 % (0-5); LYMPHOCYTES 23.8 % (15-50); MCH 28.8 pg (26.0-34.0); MCHC 32.6 g/dL (31.0-37.0); MCV 88.3 fL (80.0-100.0); MEAN PLATELET VOLUME 9.4 fL (7.4-10.4); MONOCYTES 7.8 % (2-11); NEUTROPHILS 62.5 % (40-80); PLATELET COUNT 246 10x3/uL (130-400); RBC 3.93 10x6/uL (4.20-6.10); RDW 13.4 % (11.5-14.5); WBC 6.8 10x3/uL (4.8-10.8)
[2018-01-23 07:18] LABS: ALKALINE PHOSPHATASE 79 U/L (46-116); ALT (SGPT) 18 U/L (10-68); CALCIUM 8.3 mg/dL (8.5-10.1); CARBON DIOXIDE 35.6 mmol/L (21.0-32.0); CHLORIDE - SERUM 103 mmol/L (98-107); CREATININE - SERUM 0.6 mg/dL (0.6-1.3); SODIUM 141 mmol/L (136-145); UREA NITROGEN 7 mg/dL (7-18); eGFR NON AFRICAN AMERICAN > 90 mL/min (90-120)
[2018-01-23 07:34] LABS: CALC OSMOLALITY 277 mosm/kg (275-300); GLUCOSE 87 mg/dL (74-106)
[2018-01-23 07:35] LABS: POTASSIUM - SERUM 3.6 mmol/L (3.5-5.1)
[2018-01-24] VITALS (87 sets, daily range): BP systolic 75–134; BP diastolic 44–69
[2018-01-24 06:24] LABS: BASOPHILS 0.2 % (0-2); EOSINOPHILS 0.3 % (0-7); HEMATOCRIT 37.7 % (42.0-54.0); HEMOGLOBIN 12.8 g/dL (13.5-17.5); IMMATURE GRANULOCYTES 0.3 % (0-5); LYMPHOCYTES 4.1 % (15-50); MCH 29.3 pg (26.0-34.0); MCV 86.3 fL (80.0-100.0); MEAN PLATELET VOLUME 8.9 fL (7.4-10.4); MONOCYTES 6.6 % (2-11); NEUTROPHILS 88.5 % (40-80); PLATELET COUNT 290 10x3/uL (130-400); RBC 4.37 10x6/uL (4.20-6.10); RDW 13.4 % (11.5-14.5)
[2018-01-24 06:54] LABS: ALKALINE PHOSPHATASE 82 U/L (46-116); ALT (SGPT) 17 U/L (10-68); CALC OSMOLALITY 284 mosm/kg (275-300); CALCIUM 7.8 mg/dL (8.5-10.1); CARBON DIOXIDE 29.8 mmol/L (21.0-32.0); CHLORIDE - SERUM 101 mmol/L (98-107); CREATININE - SERUM 0.7 mg/dL (0.6-1.3); GLUCOSE 287 mg/dL (74-106); POTASSIUM - SERUM 4.2 mmol/L (3.5-5.1); PROTEIN - SERUM 6.2 g/dL (6.4-8.2); SODIUM 138 mmol/L (136-145); UREA NITROGEN 9 mg/dL (7-18); eGFR NON AFRICAN AMERICAN > 90 mL/min (90-120)
[2018-01-25] VITALS (86 sets, daily range): BP systolic 75–142; BP diastolic 46–75
[2018-01-25 06:35] LABS: BASOPHILS 0.2 % (0-2); EOSINOPHILS 1.8 % (0-7); HEMATOCRIT 32.1 % (42.0-54.0); HEMOGLOBIN 10.8 g/dL (13.5-17.5); IMMATURE GRANULOCYTES 0.4 % (0-5); MCHC 33.6 g/dL (31.0-37.0); MCV 86.3 fL (80.0-100.0); MONOCYTES 8.8 % (2-11); NEUTROPHILS 80.8 % (40-80); PLATELET COUNT 230 10x3/uL (130-400); RBC 3.72 10x6/uL (4.20-6.10); RDW 13.6 % (11.5-14.5)
[2018-01-25 06:59] LABS: ALBUMIN 1.8 g/dL (3.4-5.0); ALKALINE PHOSPHATASE 69 U/L (46-116); ALT (SGPT) 18 U/L (10-68); BILIRUBIN - TOTAL 0.68 mg/dL (0.2-1.3); CALCIUM 7.9 mg/dL (8.5-10.1); CARBON DIOXIDE 30.7 mmol/L (21.0-32.0); CHLORIDE - SERUM 100 mmol/L (98-107); CREATININE - SERUM 0.6 mg/dL (0.6-1.3); PROTEIN - SERUM 5.9 g/dL (6.4-8.2); SODIUM 134 mmol/L (136-145); eGFR NON AFRICAN AMERICAN > 90 mL/min (90-120)
[2018-01-25 07:04] LABS: CALC OSMOLALITY 271 mosm/kg (275-300); GLUCOSE 163 mg/dL (74-106); UREA NITROGEN 12 mg/dL (7-18)
[2018-01-25 16:15] LABS: FUNGUS STAIN Final report (())
[2018-01-25 18:10] LABS: AFB SPECIMEN PROCESSING Concentration (()); AFB SPECIMEN PROCESSING Tissue Grinding (())
[2018-01-26] VITALS (54 sets, daily range): BP systolic 82–134; BP diastolic 41–86
[2018-01-26 06:09] LABS: BASOPHILS 0.2 % (0-2); HEMATOCRIT 31.8 % (42.0-54.0); HEMOGLOBIN 10.6 g/dL (13.5-17.5); IMMATURE GRANULOCYTES 0.2 % (0-5); LYMPHOCYTES 11.5 % (15-50); MCH 28.9 pg (26.0-34.0); MCHC 33.3 g/dL (31.0-37.0); MCV 86.6 fL (80.0-100.0); MEAN PLATELET VOLUME 9.1 fL (7.4-10.4); MONOCYTES 6.2 % (2-11); NEUTROPHILS 78.9 % (40-80); PLATELET COUNT 269 10x3/uL (130-400); RBC 3.67 10x6/uL (4.20-6.10); RDW 13.5 % (11.5-14.5); WBC 13.1 10x3/uL (4.8-10.8)
[2018-01-26 06:23] LABS: ALBUMIN 1.7 g/dL (3.4-5.0); ALKALINE PHOSPHATASE 68 U/L (46-116); ALT (SGPT) 24 U/L (10-68); BILIRUBIN - TOTAL 0.59 mg/dL (0.2-1.3); CALC OSMOLALITY 271 mosm/kg (275-300); CALCIUM 7.9 mg/dL (8.5-10.1); CARBON DIOXIDE 29.2 mmol/L (21.0-32.0); CHLORIDE - SERUM 100 mmol/L (98-107); CREATININE - SERUM 0.6 mg/dL (0.6-1.3); GLUCOSE 159 mg/dL (74-106); POTASSIUM - SERUM 3.9 mmol/L (3.5-5.1); SODIUM 134 mmol/L (136-145); UREA NITROGEN 14 mg/dL (7-18); eGFR NON AFRICAN AMERICAN > 90 mL/min (90-120)
[2018-01-27] VITALS (92 sets, daily range): BP systolic 76–137; BP diastolic 38–90
[2018-01-27 05:06] LABS: BASOPHILS 0.3 % (0-2); EOSINOPHILS 4.5 % (0-7); HEMATOCRIT 30.7 % (42.0-54.0); HEMOGLOBIN 10.2 g/dL (13.5-17.5); IMMATURE GRANULOCYTES 0.2 % (0-5); LYMPHOCYTES 12.1 % (15-50); MCH 28.8 pg (26.0-34.0); MCHC 33.2 g/dL (31.0-37.0); MCV 86.7 fL (80.0-100.0); MONOCYTES 6.5 % (2-11); NEUTROPHILS 76.4 % (40-80); PLATELET COUNT 308 10x3/uL (130-400); RBC 3.54 10x6/uL (4.20-6.10); RDW 13.3 % (11.5-14.5)
[2018-01-27 05:07] LABS: WBC 9.8 10x3/uL (4.8-10.8)
[2018-01-27 05:27] LABS: CALC OSMOLALITY 276 mosm/kg (275-300); CALCIUM 7.4 mg/dL (8.5-10.1); CHLORIDE - SERUM 102 mmol/L (98-107); CREATININE - SERUM 0.6 mg/dL (0.6-1.3); GLUCOSE 166 mg/dL (74-106); POTASSIUM - SERUM 3.7 mmol/L (3.5-5.1); SODIUM 137 mmol/L (136-145); eGFR NON AFRICAN AMERICAN > 90 mL/min (90-120)
[2018-01-27 05:32] LABS: UREA NITROGEN 10 mg/dL (7-18)
[2018-01-28] VITALS (33 sets, daily range): BP systolic 78–121; BP diastolic 46–85
[2018-01-28 06:02] LABS: BASOPHILS 0.7 % (0-2); EOSINOPHILS 4.2 % (0-7); HEMATOCRIT 28.8 % (42.0-54.0); HEMOGLOBIN 9.5 g/dL (13.5-17.5); IMMATURE GRANULOCYTES 0.1 % (0-5); LYMPHOCYTES 17.9 % (15-50); MCH 28.6 pg (26.0-34.0); MCV 86.7 fL (80.0-100.0); MONOCYTES 6.5 % (2-11); NEUTROPHILS 70.6 % (40-80); PLATELET COUNT 313 10x3/uL (130-400); RBC 3.32 10x6/uL (4.20-6.10); RDW 13.4 % (11.5-14.5); WBC 8.2 10x3/uL (4.8-10.8)
[2018-01-28 06:23] LABS: CALC OSMOLALITY 278 mosm/kg (275-300); CALCIUM 7.5 mg/dL (8.5-10.1); CARBON DIOXIDE 30.9 mmol/L (21.0-32.0); CHLORIDE - SERUM 103 mmol/L (98-107); CREATININE - SERUM 0.7 mg/dL (0.6-1.3); GLUCOSE 208 mg/dL (74-106); POTASSIUM - SERUM 3.8 mmol/L (3.5-5.1); SODIUM 137 mmol/L (136-145); UREA NITROGEN 10 mg/dL (7-18); eGFR NON AFRICAN AMERICAN > 90 mL/min (90-120)
[2018-01-29] VITALS (31 sets, daily range): BP systolic 80–134; BP diastolic 52–86
[2018-01-29 06:06] LABS: BASOPHILS 0.3 % (0-2); HEMATOCRIT 29.7 % (42.0-54.0); HEMOGLOBIN 9.8 g/dL (13.5-17.5); IMMATURE GRANULOCYTES 0.2 % (0-5); LYMPHOCYTES 14.3 % (15-50); MCH 28.9 pg (26.0-34.0); MCV 87.6 fL (80.0-100.0); MEAN PLATELET VOLUME 9.1 fL (7.4-10.4); MONOCYTES 7.7 % (2-11); NEUTROPHILS 72.5 % (40-80); PLATELET COUNT 330 10x3/uL (130-400); RBC 3.39 10x6/uL (4.20-6.10); RDW 13.7 % (11.5-14.5)
[2018-01-29 06:38] LABS: ALBUMIN 1.8 g/dL (3.4-5.0); ALKALINE PHOSPHATASE 75 U/L (46-116); ALT (SGPT) 20 U/L (10-68); CALC OSMOLALITY 278 mosm/kg (275-300); CALCIUM 7.8 mg/dL (8.5-10.1); CARBON DIOXIDE 32.4 mmol/L (21.0-32.0); CHLORIDE - SERUM 104 mmol/L (98-107); CREATININE - SERUM 0.7 mg/dL (0.6-1.3); POTASSIUM - SERUM 4.1 mmol/L (3.5-5.1); PROTEIN - SERUM 6.1 g/dL (6.4-8.2); SODIUM 140 mmol/L (136-145); UREA NITROGEN 10 mg/dL (7-18); eGFR NON AFRICAN AMERICAN > 90 mL/min (90-120)
[2018-01-29 06:39] LABS: GLUCOSE 112 mg/dL (74-106)
[2018-01-29 07:03] LABS: WBC 10.8 10x3/uL (4.8-10.8)
[2018-01-30] VITALS (25 sets, daily range): BP systolic 82–134; BP diastolic 49–74
[2018-01-30 06:16] LABS: BASOPHILS 0.6 % (0-2); EOSINOPHILS 7.1 % (0-7); HEMATOCRIT 28.4 % (42.0-54.0); HEMOGLOBIN 9.5 g/dL (13.5-17.5); IMMATURE GRANULOCYTES 0.3 % (0-5); LYMPHOCYTES 18.2 % (15-50); MCH 29.6 pg (26.0-34.0); MCHC 33.5 g/dL (31.0-37.0); MCV 88.5 fL (80.0-100.0); MEAN PLATELET VOLUME 9.1 fL (7.4-10.4); MONOCYTES 7.3 % (2-11); NEUTROPHILS 66.5 % (40-80); PLATELET COUNT 342 10x3/uL (130-400); RBC 3.21 10x6/uL (4.20-6.10); RDW 13.8 % (11.5-14.5)
[2018-01-30 06:34] LABS: CALCIUM 7.9 mg/dL (8.5-10.1); CARBON DIOXIDE 31.7 mmol/L (21.0-32.0); CHLORIDE - SERUM 101 mmol/L (98-107); CREATININE - SERUM 0.7 mg/dL (0.6-1.3); POTASSIUM - SERUM 4.6 mmol/L (3.5-5.1); SODIUM 134 mmol/L (136-145); VANCOMYCIN - RANDOM 25.4 ug/mL (10.0-20.0); eGFR NON AFRICAN AMERICAN > 90 mL/min (90-120)
[2018-01-30 06:35] LABS: CALC OSMOLALITY 273 mosm/kg (275-300); GLUCOSE 215 mg/dL (74-106); UREA NITROGEN 13 mg/dL (7-18)
[2018-01-31] VITALS (24 sets, daily range): BP systolic 84–117; BP diastolic 47–81
[2018-01-31 06:24] LABS: BASOPHILS 0.6 % (0-2); EOSINOPHILS 8.5 % (0-7); HEMATOCRIT 28.1 % (42.0-54.0); HEMOGLOBIN 9.2 g/dL (13.5-17.5); IMMATURE GRANULOCYTES 0.2 % (0-5); LYMPHOCYTES 18.8 % (15-50); MCH 28.9 pg (26.0-34.0); MCHC 32.7 g/dL (31.0-37.0); MCV 88.4 fL (80.0-100.0); MEAN PLATELET VOLUME 8.8 fL (7.4-10.4); MONOCYTES 7.6 % (2-11); NEUTROPHILS 64.3 % (40-80); PLATELET COUNT 352 10x3/uL (130-400); RBC 3.18 10x6/uL (4.20-6.10); WBC 8.3 10x3/uL (4.8-10.8)
[2018-01-31 07:07] LABS: CALC OSMOLALITY 279 mosm/kg (275-300); CARBON DIOXIDE 31.5 mmol/L (21.0-32.0); CHLORIDE - SERUM 103 mmol/L (98-107); CREATININE - SERUM 0.7 mg/dL (0.6-1.3); POTASSIUM - SERUM 4.4 mmol/L (3.5-5.1); SODIUM 139 mmol/L (136-145); UREA NITROGEN 11 mg/dL (7-18); eGFR NON AFRICAN AMERICAN > 90 mL/min (90-120)
[2018-01-31 07:08] LABS: GLUCOSE 148 mg/dL (74-106)
[2018-02-01] VITALS (14 sets, daily range): BP systolic 89–107; BP diastolic 57–72
[2018-02-01] MEDS ORDERED: LOPRESSOR25 MG PO (09:35)
[2018-02-01] MEDS ORDERED: BAYER CHEWABLE81 MG PO (09:40)
[2018-02-01] MEDS ORDERED: MUCINEX600 MG PO (11:19)
[2018-02-21 16:15] LABS: FUNGUS MYCOLOGY CULTURE Final report (())
[2018-03-18 12:12] LABS: ACID FAST CULTURE Negative (()); ACID FAST SMEAR Negative (())
== END 2018-02-01 13:35 | disposition home or self-care (01) | DRG 163 ==
LOC: D.ER 12:06 → D.MS 14:40 → D.CVICU 14:40 → D.EDHOLD 14:40 → D.MS 15:00 → D.CVICU 01-23 11:46
PROVIDERS: Emergency Medicine; Family Medicine; Internal Medicine Cardiovascular Disease; Internal Medicine Pulmonary Disease; Radiology Diagnostic Radiology
PROC: 0W9B30Z Drainage of Left Pleural Cavity with Drainage Device, Percutaneous Approach (ICD-10-PCS; principal; 2018-01-15 13:15)
PROC: 0W2BX0Z Change Drainage Device in Left Pleural Cavity, External Approach (ICD-10-PCS; 2018-01-18)
PROC: 0BBJ4ZX Excision of Left Lower Lung Lobe, Percutaneous Endoscopic Approach, Diagnostic (ICD-10-PCS; 2018-01-23)
PROC: 0B9C8ZX Drainage of Right Upper Lung Lobe, Via Natural or Artificial Opening Endoscopic, Diagnostic (ICD-10-PCS; 2018-01-23)
PROC: 3E0L4GC Introduction of Other Therapeutic Substance into Pleural Cavity, Percutaneous Endoscopic Approach (ICD-10-PCS; 2018-01-23)
PROC: 0BBC4ZZ Excision of Right Upper Lung Lobe, Percutaneous Endoscopic Approach (ICD-10-PCS; 2018-01-23 07:30)
DX: J93.0 Spontaneous tension pneumothorax (principal); J86.0 Pyothorax with fistula; J18.0 Bronchopneumonia, unspecified organism; J96.01 Acute respiratory failure with hypoxia; E87.1 Hypo-osmolality and hyponatremia; J44.0 Chronic obstructive pulmonary disease with (acute) lower respiratory infection; J44.1 Chronic obstructive pulmonary disease with (acute) exacerbation; K86.1 Other chronic pancreatitis; E11.65 Type 2 diabetes mellitus with hyperglycemia; F41.9 Anxiety disorder, unspecified; F32.9 Major depressive disorder, single episode, unspecified; I48.91 Unspecified atrial fibrillation; J95.812 Postprocedural air leak; Y83.8 Other surgical procedures as the cause of abnormal reaction of the patient, or of later complication, without mention of misadventure at the time of the procedure; D64.9 Anemia, unspecified; Z87.891 Personal history of nicotine dependence

== ENCOUNTER → 2018-02-04 08:26 | Outpatient (CLI) | payer SELFPAY ==
[2018-01-17 09:44] VITALS: BMI 20.6
[~2018-02-04 08:26] MED LIST changes: +AMBIEN5 MG PO; +BAYER CHEWABLE81 MG PO; +LOPRESSOR25 MG PO; +MUCINEX600 MG PO
== END | disposition home or self-care (01) ==
LOC: D.RAD 08:00
DX: J86.0 Pyothorax with fistula (principal)

== ENCOUNTER → 2018-02-08 07:53 | Outpatient (CLI) | payer SELFPAY ==
[2018-01-17 09:44] VITALS: BMI 20.6
== END | disposition home or self-care (01) ==
LOC: D.RAD 07:53
DX: J86.0 Pyothorax with fistula (principal)

== ENCOUNTER → 2018-02-21 09:53 | Outpatient (CLI) | payer SELFPAY ==
[2018-01-17 09:44] VITALS: BMI 20.6
== END | disposition home or self-care (01) ==
LOC: D.RAD 09:53
DX: J40 Bronchitis, not specified as acute or chronic (principal)

== ENCOUNTER 2018-02-28 05:06 | Outpatient (CLI) | payer SELFPAY ==
[~2018-02-28] VITALS: Ht 180.3 cm; Wt 58.2 kg
[2018-02-28 06:16] VITALS: BP 110/73; Ht 180.3 cm; Wt 58.2 kg
[2018-02-28 06:39] LABS: BASOPHILS 0.5 % (0-2); EOSINOPHILS 8.3 % (0-7); HEMOGLOBIN 11.8 g/dL (13.5-17.5); IMMATURE GRANULOCYTES 0.2 % (0-5); LYMPHOCYTES 22.6 % (15-50); MCH 29.1 pg (26.0-34.0); MCHC 32.8 g/dL (31.0-37.0); MCV 88.7 fL (80.0-100.0); MEAN PLATELET VOLUME 8.8 fL (7.4-10.4); MONOCYTES 7.5 % (2-11); NEUTROPHILS 60.9 % (40-80); RBC 4.06 10x6/uL (4.20-6.10); RDW 14.2 % (11.5-14.5); WBC 6.6 10x3/uL (4.8-10.8)
[2018-02-28 06:43] LABS: PLATELET COUNT 241 10x3/uL (130-400)
[2018-02-28 06:54] LABS: CALC OSMOLALITY 274 mosm/kg (275-300); CALCIUM 8.5 mg/dL (8.5-10.1); CHLORIDE - SERUM 106 mmol/L (98-107); CREATININE - SERUM 0.6 mg/dL (0.6-1.3); POTASSIUM - SERUM 4.5 mmol/L (3.5-5.1); SODIUM 141 mmol/L (136-145); UREA NITROGEN 4 mg/dL (7-18); eGFR NON AFRICAN AMERICAN > 90 mL/min (90-120)
[2018-02-28 06:57] LABS: GLUCOSE 40 mg/dL (74-106)
[2018-02-28 08:39] LABS: INR 1.1 (0.85-1.17); PROTIME 13.8 SECONDS (11.6-15.0)
[2018-02-28 08:40] LABS: APTT 41.6 SECONDS (22.8-39.4)
== END 2018-02-28 12:20 | disposition home or self-care (01) ==
LOC: D.SP 05:06 → D.CT 08:00 → D.SP 08:00
PROVIDERS: Internal Medicine Cardiovascular Disease; Radiology Diagnostic Radiology
DX: J95.811 Postprocedural pneumothorax (principal); Z01.812 Encounter for preprocedural laboratory examination

== ENCOUNTER → 2018-04-04 08:06 | Outpatient (CLI) | payer SELFPAY ==
[2018-02-28 06:16] VITALS: BMI 17.8
== END | disposition home or self-care (01) ==
LOC: D.RAD 08:06
DX: J93.9 Pneumothorax, unspecified (principal); J40 Bronchitis, not specified as acute or chronic

== ENCOUNTER → 2018-04-09 08:13 | Outpatient (CLI) | payer SELFPAY ==
[2018-02-28 06:16] VITALS: BMI 17.8
== END | disposition home or self-care (01) ==
LOC: D.LAB 08:13
DX: J93.9 Pneumothorax, unspecified (principal)

== ENCOUNTER → 2018-04-16 07:57 | Outpatient (CLI) | payer SELFPAY ==
[2018-02-28 06:16] VITALS: BMI 17.8
== END | disposition home or self-care (01) ==
LOC: D.RAD 07:57
DX: J40 Bronchitis, not specified as acute or chronic (principal)

== ENCOUNTER → 2018-05-02 10:19 | Outpatient (CLI) | payer SELFPAY ==
[2018-02-28 06:16] VITALS: BMI 17.8
== END | disposition home or self-care (01) ==
LOC: D.RAD 10:19
DX: J90 Pleural effusion, not elsewhere classified (principal)

== ENCOUNTER → 2018-06-13 11:30 | Outpatient (CLI) | payer SELFPAY ==
[2018-02-28 06:16] VITALS: BMI 17.8
== END | disposition home or self-care (01) ==
LOC: D.RAD 11:30
DX: J93.9 Pneumothorax, unspecified (principal)

== ENCOUNTER → 2018-07-11 10:15 | Outpatient (CLI) | payer MEDICAID ==
[2018-02-28 06:16] VITALS: BMI 17.8
== END | disposition home or self-care (01) ==
LOC: D.CT 10:15
DX: J93.9 Pneumothorax, unspecified (principal)

== ENCOUNTER 2018-07-15 10:28 | Outpatient (CLI) | payer MEDICAID ==
[~2018-07-15] VITALS: Ht 180.3 cm; Wt 56.8 kg
[2018-07-15 11:03] VITALS: Ht 180.3 cm; Wt 56.8 kg
== END 2018-07-15 16:00 | disposition home or self-care (01) ==
LOC: D.OPS 10:28
DX: J93.9 Pneumothorax, unspecified (principal)

== ENCOUNTER → 2018-09-04 08:47 | Outpatient (CLI) | payer MEDICAID ==
[2018-07-15 11:03] VITALS: BMI 17.4
== END | disposition home or self-care (01) ==
LOC: D.RAD 08:47
DX: J93.9 Pneumothorax, unspecified (principal)

== ENCOUNTER 2018-11-18 12:41 | Inpatient (IN) | payer MEDICAID ==
[2018-11-18] MEDS ORDERED: ELIQUIS5 MG PO (17:08)
[2018-11-18] MEDS ORDERED: NICOTINE 14 MG/24 HR TD (17:08)
[2018-11-18 17:24] VITALS: BP 110/74; BMI 18.1
[2018-11-18 18:50] LABS: BASOPHILS 0.4 % (0-2); EOSINOPHILS 3.9 % (0-7); HEMATOCRIT 41.5 % (42.0-54.0); HEMOGLOBIN 14.2 g/dL (13.5-17.5); LYMPHOCYTES 30.1 % (15-50); MCH 29.9 pg (26.0-34.0); MCHC 34.2 g/dL (31.0-37.0); MCV 87.4 fL (80.0-100.0); MEAN PLATELET VOLUME 9.1 fL (7.4-10.4); MONOCYTES 6.7 % (2-11); NEUTROPHILS 58.9 % (40-80); RBC 4.75 10x6/uL (4.20-6.10); RDW 13.7 % (11.5-14.5); WBC 5.4 10x3/uL (4.8-10.8)
[2018-11-18 18:56] LABS: PLATELET COUNT 187 10x3/uL (130-400)
[2018-11-18 19:27] LABS: ALBUMIN 3.2 g/dL (3.4-5.0); ALKALINE PHOSPHATASE 148 U/L (46-116); ALT (SGPT) 39 U/L (10-68); BILIRUBIN - TOTAL 0.27 mg/dL (0.2-1.3); CALC OSMOLALITY 287 mosm/kg (275-300); CALCIUM 8.1 mg/dL (8.5-10.1); CARBON DIOXIDE 35.2 mmol/L (21.0-32.0); CHLORIDE - SERUM 100 mmol/L (98-107); CREATININE - SERUM 0.8 mg/dL (0.6-1.3); POTASSIUM - SERUM 4.2 mmol/L (3.5-5.1); PROTEIN - SERUM 6.7 g/dL (6.4-8.2); SODIUM 140 mmol/L (136-145); UREA NITROGEN 7 mg/dL (7-18); eGFR NON AFRICAN AMERICAN > 90 mL/min (90-120)
[2018-11-18 19:38] LABS: GLUCOSE 291 mg/dL (74-106)
[2018-11-19 00:30] VITALS: BP 112/76
[2018-11-19 01:16] VITALS: BP 105/69
[2018-11-19 07:27] LABS: BASOPHILS 0 % (0-2); EOSINOPHILS 0.2 % (0-7); LYMPHOCYTES 10.7 % (15-50); MCH 29.6 pg (26.0-34.0); MCHC 34.1 g/dL (31.0-37.0); MCV 86.7 fL (80.0-100.0); MEAN PLATELET VOLUME 10.1 fL (7.4-10.4); MONOCYTES 0.6 % (2-11); NEUTROPHILS 88.5 % (40-80); PLATELET COUNT 201 10x3/uL (130-400); RBC 4.73 10x6/uL (4.20-6.10); RDW 13.7 % (11.5-14.5); WBC 4.7 10x3/uL (4.8-10.8)
[2018-11-19 07:42] LABS: ALBUMIN 2.8 g/dL (3.4-5.0); ALKALINE PHOSPHATASE 124 U/L (46-116); BILIRUBIN - TOTAL 0.33 mg/dL (0.2-1.3); CALCIUM 8.2 mg/dL (8.5-10.1); CARBON DIOXIDE 33.6 mmol/L (21.0-32.0); CHLORIDE - SERUM 100 mmol/L (98-107); CREATININE - SERUM 0.8 mg/dL (0.6-1.3); MAGNESIUM - SERUM 1.8 mg/dL (1.8-2.4); PROTEIN - SERUM 6.7 g/dL (6.4-8.2); SODIUM 137 mmol/L (136-145); eGFR NON AFRICAN AMERICAN > 90 mL/min (90-120)
[2018-11-19 07:46] LABS: ALT (SGPT) 29 U/L (10-68); CALC OSMOLALITY 279 mosm/kg (275-300); GLUCOSE 199 mg/dL (74-106); POTASSIUM - SERUM 4.9 mmol/L (3.5-5.1); UREA NITROGEN 12 mg/dL (7-18)
[2018-11-19 08:18] VITALS: BP 99/66
[2018-11-19 09:35] VITALS: BMI 18.1
[2018-11-19 10:22] LABS: INR 1.59 (0.85-1.17); PROTIME 18.4 SECONDS (11.6-15.0)
[2018-11-19 12:48] VITALS: BP 102/62
[2018-11-19 20:00] VITALS: BP 98/64
[2018-11-20 04:00] VITALS: BP 92/62
[2018-11-20 06:47] LABS: BASOPHILS 0 % (0-2); EOSINOPHILS 0 % (0-7); HEMATOCRIT 37.5 % (42.0-54.0); HEMOGLOBIN 12.7 g/dL (13.5-17.5); IMMATURE GRANULOCYTES 0.2 % (0-5); LYMPHOCYTES 3.9 % (15-50); MCH 29.2 pg (26.0-34.0); MCHC 33.9 g/dL (31.0-37.0); MCV 86.2 fL (80.0-100.0); MEAN PLATELET VOLUME 9.8 fL (7.4-10.4); MONOCYTES 1.3 % (2-11); NEUTROPHILS 94.6 % (40-80); PLATELET COUNT 197 10x3/uL (130-400); RBC 4.35 10x6/uL (4.20-6.10); RDW 13.8 % (11.5-14.5)
[2018-11-20 06:57] LABS: WBC 14.4 10x3/uL (4.8-10.8)
[2018-11-20 07:09] LABS: ALBUMIN 2.6 g/dL (3.4-5.0); ALKALINE PHOSPHATASE 117 U/L (46-116); ALT (SGPT) 22 U/L (10-68); BILIRUBIN - TOTAL 0.29 mg/dL (0.2-1.3); CALCIUM 8.3 mg/dL (8.5-10.1); CARBON DIOXIDE 35.1 mmol/L (21.0-32.0); CHLORIDE - SERUM 101 mmol/L (98-107); CREATININE - SERUM 0.7 mg/dL (0.6-1.3); MAGNESIUM - SERUM 1.9 mg/dL (1.8-2.4); POTASSIUM - SERUM 4.9 mmol/L (3.5-5.1); PROTEIN - SERUM 6.2 g/dL (6.4-8.2); SODIUM 137 mmol/L (136-145); UREA NITROGEN 15 mg/dL (7-18); eGFR NON AFRICAN AMERICAN > 90 mL/min (90-120)
[2018-11-20 07:12] LABS: CALC OSMOLALITY 287 mosm/kg (275-300); GLUCOSE 330 mg/dL (74-106)
[2018-11-20 09:37] VITALS: BP 95/58
[2018-11-20 12:51] VITALS: BP 95/58
[2018-11-20 17:07] VITALS: BP 95/60
--- NOTE | 2018-11-20 17:26 | MORECARE ---
CASE MANAGEMENT DISCHARGE SUMMARY PATIENT: DANIA LANDRUM UNIT: [id number] ADM DATE: 11/18/18 AGE: 53 : 69 SEX: M ROOM/BED: D.2240 AUTHOR: PITO KAYE PHYSICIAN: REFERRING PHYSICIAN: MARYANN HANDY MD DATE OF SERVICE: 11/20/18 Discharge Plan Patient Name: DANIA LANDRUM Facility: [facility]:[place] : 1965 Planned Disposition: Home Anticipated Discharge Date: Discharge Date: Expected LOS: Initial Reviewer: [email or web address] Initial Review Date: 11/20/2018 Generated: 11/20/18 6:26 pm Patient Name: DANIA LANDRUM Page [id number] at 1726 All edits/amendments must be made on the electronic document DICTATION DATE: 11/20/181725 ENTERPRISE SALES EXECUTIVE: GEORGI 11/20/181725 RPT#: [id number] DC DATE: STATUS: ADM IN [facility] [address] [place] [address] END OF REPORT
--- NOTE | 2018-11-20 17:35 | MORECARE ---
CASE MANAGEMENT DISCHARGE SUMMARY PATIENT: DANIA LANDRUM UNIT: [id number] ADM DATE: 11/18/18 AGE: 53 : 69 SEX: M ROOM/BED: D.2240 AUTHOR: VARGASDOC PHYSICIAN: REFERRING PHYSICIAN: MARYANN HANDY MD DATE OF SERVICE: 11/20/18 Discharge Plan Patient Name: DANIA LANDRUM Facility: [facility]:[place] : 1965 Planned Disposition: Home Anticipated Discharge Date: Discharge Date: Expected LOS: Initial Reviewer: [email or web address] Initial Review Date: 11/20/2018 Generated: 11/20/18 6:35 pm Comments DCP- Discharge Planning Updated by [email or web address]: Madelin Cevallos on 11/20/18 4:[address] Patient Name: DANIA LANDRUM Admission Status: Elective Accout number: [id number] Admission Date: 11-18-2018 : 1965 Admission Diagnosis:SHORTNESS OF BREATH Attending: MARYANN HANDY Current LOS: 2 Anticipated DC Date: Planned Disposition: Home Primary Insurance: MEDICAID [place] Discharge Planning Comments: CM met with patient to complete initial dc planning assessment. CM educated patient on the CM role and verbal consent given by patient to complete assessment. Patient lives at home alone. At discharge patient plans to return and feels this is a safe discharge. CM discussed availability of home health and medical equipment. Patient denied known discharge needs at this time. States he would like to get food stamps. I informed him to go to his local [facility] office for an application for food stamps. He states his son will take him home on discharge and would have him help him with the application for food stamps. Declines home health at this time. He is unsure of the DME company he uses for his oxygen and portable oxygen. CM will continue to follow and will assist as needed with dc plans/needs. Workers Compensation Claims Supervisor: Madelin Cevallos DCPIA - Discharge Planning Initial Assessment Updated by [email or web address]: Madelin Cevallos on 11/20/18 5:26 pm * Is the patient Alert and Oriented? Yes * How many steps to enter\exit or inside your home? 2/0 * PCP Dr. Kohler * [facility]acy [facility] on [address] * Preadmission Environment Home Alone * ADLs Independent * Equipment Other Oxygen * Other Equipment Portable oxygen * List name and contact numbers for known caregivers / representatives who currently or will assist patient after discharge: Vicente - son - unknown number Dania - brother - [phone] Rea - daughter - [phone] * Verbal permission to speak to the caregivers and representatives has been obtained from the patient. Yes * Community resources currently utilized None * Please name any agencies selected above. Unsure of DME he gets oxygen from * Additional services required to return to the preadmission environment? No * Can the patient safely return to the preadmission environment? Yes * Has this patient been hospitalized within the prior 30 days at any hospital? Yes Last DP export: 11/20/18 4:26 p Patient Name: DANIA LANDRUM Page 17140 at 1735 All edits/amendments must be made on the electronic document DICTATION DATE: 11/20/181733 ETHYL BLENDER: GEORGI 11/20/181733 RPT#: [id number] DC DATE: STATUS: ADM IN [facility] [address] [place] [address] END OF REPORT
[2018-11-20 20:00] VITALS: BP 92/58
[2018-11-21 04:00] VITALS: BP 91/61
[2018-11-21 05:34] LABS: BASOPHILS 0 % (0-2); EOSINOPHILS 0 % (0-7); HEMATOCRIT 38.8 % (42.0-54.0); IMMATURE GRANULOCYTES 0.3 % (0-5); LYMPHOCYTES 3.1 % (15-50); MCH 29.3 pg (26.0-34.0); MCHC 33.5 g/dL (31.0-37.0); MCV 87.6 fL (80.0-100.0); MEAN PLATELET VOLUME 9.4 fL (7.4-10.4); MONOCYTES 1.7 % (2-11); NEUTROPHILS 94.9 % (40-80); PLATELET COUNT 184 10x3/uL (130-400); RBC 4.43 10x6/uL (4.20-6.10); RDW 14.5 % (11.5-14.5); WBC 14.5 10x3/uL (4.8-10.8)
[2018-11-21 06:04] LABS: ALBUMIN 2.8 g/dL (3.4-5.0); ALKALINE PHOSPHATASE 103 U/L (46-116); BILIRUBIN - TOTAL 0.26 mg/dL (0.2-1.3); CALCIUM 8.1 mg/dL (8.5-10.1); CARBON DIOXIDE 33.3 mmol/L (21.0-32.0); CHLORIDE - SERUM 103 mmol/L (98-107); CREATININE - SERUM 0.7 mg/dL (0.6-1.3); MAGNESIUM - SERUM 1.9 mg/dL (1.8-2.4); POTASSIUM - SERUM 4.6 mmol/L (3.5-5.1); PROTEIN - SERUM 6.2 g/dL (6.4-8.2); SODIUM 140 mmol/L (136-145); UREA NITROGEN 16 mg/dL (7-18); eGFR NON AFRICAN AMERICAN > 90 mL/min (90-120)
[2018-11-21 06:05] LABS: ALT (SGPT) 29 U/L (10-68); CALC OSMOLALITY 280 mosm/kg (275-300); GLUCOSE 120 mg/dL (74-106)
[2018-11-21 08:35] VITALS: BP 97/62
[2018-11-21 12:37] VITALS: BP 103/70
[2018-11-21 17:08] LABS: ACID FAST SMEAR Negative (()); AFB SPECIMEN PROCESSING Not Indicated (())
[2018-11-21 17:47] VITALS: BP 105/66
[2018-11-21 20:00] VITALS: BP 95/59
[2018-11-22] VITALS: BP 98/61
[2018-11-22 04:00] VITALS: BP 94/63
[2018-11-22 06:34] LABS: BASOPHILS 0 % (0-2); EOSINOPHILS 0 % (0-7); HEMATOCRIT 36.5 % (42.0-54.0); HEMOGLOBIN 12.1 g/dL (13.5-17.5); IMMATURE GRANULOCYTES 0.2 % (0-5); LYMPHOCYTES 5.5 % (15-50); MCH 29.5 pg (26.0-34.0); MCHC 33.2 g/dL (31.0-37.0); MEAN PLATELET VOLUME 9.9 fL (7.4-10.4); MONOCYTES 1.8 % (2-11); NEUTROPHILS 92.5 % (40-80); PLATELET COUNT 193 10x3/uL (130-400); RDW 14.7 % (11.5-14.5)
[2018-11-22 06:35] LABS: WBC 8.9 10x3/uL (4.8-10.8)
[2018-11-22 06:42] LABS: ALBUMIN 2.5 g/dL (3.4-5.0); ALKALINE PHOSPHATASE 99 U/L (46-116); ALT (SGPT) 31 U/L (10-68); BILIRUBIN - TOTAL 0.27 mg/dL (0.2-1.3); CALCIUM 7.9 mg/dL (8.5-10.1); CARBON DIOXIDE 33.8 mmol/L (21.0-32.0); CHLORIDE - SERUM 99 mmol/L (98-107); POTASSIUM - SERUM 4.3 mmol/L (3.5-5.1); SODIUM 136 mmol/L (136-145); UREA NITROGEN 20 mg/dL (7-18)
[2018-11-22 06:44] LABS: CALC OSMOLALITY 284 mosm/kg (275-300); GLUCOSE 285 mg/dL (74-106); eGFR NON AFRICAN AMERICAN 84 mL/min (90-120)
[2018-11-22 07:59] VITALS: BP 94/55
[2018-11-22 15:11] LABS: FUNGUS STAIN Final report (())
[2018-11-22 16:03] VITALS: BP 95/57
[2018-11-22 19:56] VITALS: BP 99/63
[2018-11-23] VITALS: BP 106/69
[2018-11-23 05:56] LABS: BASOPHILS 0 % (0-2); EOSINOPHILS 0 % (0-7); HEMATOCRIT 38.6 % (42.0-54.0); HEMOGLOBIN 12.8 g/dL (13.5-17.5); IMMATURE GRANULOCYTES 0.1 % (0-5); LYMPHOCYTES 5.4 % (15-50); MCH 29.6 pg (26.0-34.0); MCHC 33.2 g/dL (31.0-37.0); MCV 89.4 fL (80.0-100.0); MEAN PLATELET VOLUME 9.3 fL (7.4-10.4); MONOCYTES 3.2 % (2-11); NEUTROPHILS 91.3 % (40-80); PLATELET COUNT 169 10x3/uL (130-400); RBC 4.32 10x6/uL (4.20-6.10); RDW 14.6 % (11.5-14.5); WBC 6.9 10x3/uL (4.8-10.8)
[2018-11-23 06:26] LABS: ALBUMIN 2.7 g/dL (3.4-5.0); ALKALINE PHOSPHATASE 98 U/L (46-116); ALT (SGPT) 35 U/L (10-68); CALCIUM 8.1 mg/dL (8.5-10.1); CARBON DIOXIDE 35.9 mmol/L (21.0-32.0); CHLORIDE - SERUM 102 mmol/L (98-107); MAGNESIUM - SERUM 2.1 mg/dL (1.8-2.4); POTASSIUM - SERUM 4.4 mmol/L (3.5-5.1); PROTEIN - SERUM 6.1 g/dL (6.4-8.2); SODIUM 141 mmol/L (136-145); UREA NITROGEN 17 mg/dL (7-18)
[2018-11-23 06:28] LABS: CALC OSMOLALITY 282 mosm/kg (275-300); CREATININE - SERUM 0.7 mg/dL (0.6-1.3); GLUCOSE 99 mg/dL (74-106); eGFR NON AFRICAN AMERICAN > 90 mL/min (90-120)
[2018-11-23 08:59] VITALS: BP 114/70
[2018-11-23] MEDS ORDERED: LEVAQUIN750 MG PO (12:39)
[2018-11-23] MEDS ORDERED: PULMICORT0.5 MG/21 UPD (12:40)
[2018-11-23] MEDS ORDERED: OMNICEF300 MG PO (12:41)
[2018-11-23] MEDS ORDERED: BROVANA15 MCG/2 M INH (12:41)
[2018-11-23] MEDS ORDERED: PREDNISONE10 MG PO (12:41)
[2018-11-23] MEDS ORDERED: XOPENEX 0.0.63 MG/3 UPD (12:42)
[2018-11-23] MEDS ORDERED: Nicoderm [PBKC] TRANSDERM (12:44)
[2018-11-23 14:48] VITALS: BP 135/77
[2018-11-23 18:06] LABS: FUNGAL - ASP FLAVUS Negative (Neg:<1:1); FUNGAL - ASP NIGER Negative (Neg:<1:1); FUNGAL - ASPER FUMIGATUS Negative (Neg:<1:1)
--- NOTE | 2018-11-25 19:25 | MORECARE ---
CASE MANAGEMENT DISCHARGE SUMMARY PATIENT: DANIA LANDRUM UNIT: [id number] ADM DATE: 11/18/18 AGE: 53 : 69 SEX: M ROOM/BED: D.2240 AUTHOR: VARGASDOC PHYSICIAN: REFERRING PHYSICIAN: MARYANN HANDY MD DATE OF SERVICE: 11/25/18 Discharge Plan Patient Name: DANIA LANDRUM Facility: [facility]:[place] : 1965 Planned Disposition: Home Anticipated Discharge Date: 11/23/18 Discharge Date: 11/23/2018 Expected LOS: 5 Initial Reviewer: [email or web address] Initial Review Date: 11/20/2018 Generated: 11/25/18 8:25 pm Comments DCP- Discharge Planning Updated by [email or web address]: Savannah Riley on 11/25/18 6:[address] LATE ENTRY PATIENT'S NURSE CALLED DME PROVIDER IN [place], [place] WHERE THE PATIENT HAD RECEIVED HIS OXYGEN. SHE VERIFIED THEY WERE HIS PROVIDER. THE PATIENT REQUIRED A NEBULIZER. CM PROVIDED FACE SHEET, CLINICAL, MD ORDERS AND COPY OF DISCHARGE MED LIST TO THE NURSE FOR DELIVER PERSON TO TAKE WITH HIM. CM REC TELEPHONE CALL FROM DHARA Landis FROM [facility]. SHE DID NOT HAVE THE INFORMATION. CM FAXED INFORMATION TO [phone]. TC BACK TO DHARA Landis TO VERIFY IF SHE HAD ALL THE NECESSARY INFORMATION. NO CB OR MESSAGE RECEIVED. DCP- Discharge Planning Updated by [email or web address]: Madelin Cevallos on 11/20/18 4:[address] Patient Name: DANIA LANDRUM Admission Status: Elective Accout number: [id number] Admission Date: 11-18-2018 : 1965 Admission Diagnosis:SHORTNESS OF BREATH Attending: MARYANN HANDY Current LOS: 2 Anticipated DC Date: Planned Disposition: Home Primary Insurance: MEDICAID [place] Discharge Planning Comments: CM met with patient to complete initial dc planning assessment. CM educated patient on the CM role and verbal consent given by patient to complete assessment. Patient lives at home alone. At discharge patient plans to return and feels this is a safe discharge. CM discussed availability of home health and medical equipment. Patient denied known discharge needs at this time. States he would like to get food stamps. I informed him to go to his local [facility] office for an application for food stamps. He states his son will take him home on discharge and would have him help him with the application for food stamps. Declines home health at this time. He is unsure of the DME company he uses for his oxygen and portable oxygen. CM will continue to follow and will assist as needed with dc plans/needs. Educational Diagnostician: Madelin Mart DCPIA - Discharge Planning Initial Assessment Updated by [email or web address]: Madelin Mart on 11/20/18 5:26 pm * Is the patient Alert and Oriented? Yes * How many steps to enter\exit or inside your home? 2/0 * PCP Dr. Kohler * [facility] * Preadmission Environment Home Alone * ADLs Independent * Equipment Other Oxygen * Other Equipment Portable oxygen * List name and contact numbers for known caregivers / representatives who currently or will assist patient after discharge: Vicente - son - unknown number Dania - brother - [phone] Rea - daughter - [phone] * Verbal permission to speak to the caregivers and representatives has been obtained from the patient. Yes * Community resources currently utilized None * Please name any agencies selected above. Unsure of DME he gets oxygen from * Additional services required to return to the preadmission environment? No * Can the patient safely return to the preadmission environment? Yes * Has this patient been hospitalized within the prior 30 days at any hospital? Yes Last DP export: 11/20/18 4:35 p Patient Name: DANIA LANDRUM Page 83640 at 1925 All edits/amendments must be made on the electronic document DICTATION DATE: 11/25/181923 CW OPERATOR: GEORGI 11/25/181923 RPT#: [id number] DC DATE:11/23/18 STATUS: DIS IN [facility] [address] [facility] [address] END OF REPORT
--- NOTE | 2018-11-25 19:31 | MORECARE ---
CASE MANAGEMENT DISCHARGE SUMMARY PATIENT: DANIA LANDRUM UNIT: [id number] ADM DATE: 11/18/18 AGE: 53 : 69 SEX: M ROOM/BED: D.2240 AUTHOR: VARGASDOC PHYSICIAN: REFERRING PHYSICIAN: MARYANN HANDY MD DATE OF SERVICE: 11/25/18 Discharge Plan Patient Name: DANIA LANDRUM Facility: [facility]:[place] : 1965 Planned Disposition: Home Anticipated Discharge Date: 11/23/18 Discharge Date: 11/23/2018 Expected LOS: 5 Initial Reviewer: [email or web address] Initial Review Date: 11/20/2018 Generated: 11/25/18 8:31 pm Comments DCP- Discharge Planning Updated by [email or web address]: Savannah Riley on 11/25/18 6:[address] LATE ENTRY PATIENT'S NURSE CALLED DME PROVIDER IN [place], [place] WHERE THE PATIENT HAD RECEIVED HIS OXYGEN. SHE VERIFIED THEY WERE HIS PROVIDER. THE PATIENT REQUIRED A NEBULIZER. CM PROVIDED FACE SHEET, CLINICAL, MD ORDERS AND COPY OF DISCHARGE MED LIST TO THE NURSE FOR DELIVER PERSON TO TAKE WITH HIM. CM REC TELEPHONE CALL FROM DHARA Landis FROM [facility]. SHE DID NOT HAVE THE INFORMATION. CM FAXED INFORMATION TO [phone]. TC BACK TO DHARA Landis TO VERIFY IF SHE HAD ALL THE NECESSARY INFORMATION. NO CB OR MESSAGE RECEIVED. DCP- Discharge Planning Updated by [email or web address]: Madelin Cevallos on 11/20/18 4:[address] Patient Name: DANIA LANDRUM Admission Status: Elective Accout number: [id number] Admission Date: 11-18-2018 : 1965 Admission Diagnosis:SHORTNESS OF BREATH Attending: MARYANN HANDY Current LOS: 2 Anticipated DC Date: Planned Disposition: Home Primary Insurance: MEDICAID [place] Discharge Planning Comments: CM met with patient to complete initial dc planning assessment. CM educated patient on the CM role and verbal consent given by patient to complete assessment. Patient lives at home alone. At discharge patient plans to return and feels this is a safe discharge. CM discussed availability of home health and medical equipment. Patient denied known discharge needs at this time. States he would like to get food stamps. I informed him to go to his local [facility] office for an application for food stamps. He states his son will take him home on discharge and would have him help him with the application for food stamps. Declines home health at this time. He is unsure of the DME company he uses for his oxygen and portable oxygen. CM will continue to follow and will assist as needed with dc plans/needs. Fur Stretcher: Madelin Mart DCPIA - Discharge Planning Initial Assessment Updated by [email or web address]: Madelin Mart on 11/20/18 5:26 pm * Is the patient Alert and Oriented? Yes * How many steps to enter\exit or inside your home? 2/0 * PCP Dr. Kohler * Pharmacy [facility] * Preadmission Environment Home Alone * ADLs Independent * Equipment Other Oxygen * Other Equipment Portable oxygen * List name and contact numbers for known caregivers / representatives who currently or will assist patient after discharge: Vicente - son - unknown number Dania - brother - [phone] Rea - daughter - [phone] * Verbal permission to speak to the caregivers and representatives has been obtained from the patient. Yes * Community resources currently utilized None * Please name any agencies selected above. Unsure of DME he gets oxygen from * Additional services required to return to the preadmission environment? No * Can the patient safely return to the preadmission environment? Yes * Has this patient been hospitalized within the prior 30 days at any hospital? Yes Last DP export: 11/25/18 6:25 p Patient Name: DANIA LANDRUM Page 53097 at 1931 All edits/amendments must be made on the electronic document DICTATION DATE: 11/25/181930 IN [employer] CRAFTSMAN: GEORGI 11/25/181930 RPT#: [id number] DC DATE:11/23/18 STATUS: DIS IN [facility] [address] [place] [address] END OF REPORT
== END 2018-11-23 16:34 | disposition home or self-care (01) | DRG 190 ==
LOC: D.RT 12:41 → D.SDCHOLD 16:30 → D.M3 16:48 → D.MS 11-19 13:45
PROVIDERS: Family Medicine; Internal Medicine Pulmonary Disease; Specialist; ADMIT Internal Medicine Nephrology
PROC: 0B9F8ZX Drainage of Right Lower Lung Lobe, Via Natural or Artificial Opening Endoscopic, Diagnostic (ICD-10-PCS; 2018-11-20)
PROC: 0B9J8ZX Drainage of Left Lower Lung Lobe, Via Natural or Artificial Opening Endoscopic, Diagnostic (ICD-10-PCS; principal; 2018-11-20 15:00)
DX: J44.0 Chronic obstructive pulmonary disease with (acute) lower respiratory infection (principal); J18.9 Pneumonia, unspecified organism; J93.11 Primary spontaneous pneumothorax; F17.213 Nicotine dependence, cigarettes, with withdrawal; Z68.1 Body mass index [BMI] 19.9 or less, adult; J44.1 Chronic obstructive pulmonary disease with (acute) exacerbation; I10 Essential (primary) hypertension; I48.91 Unspecified atrial fibrillation; E11.69 Type 2 diabetes mellitus with other specified complication; R63.4 Abnormal weight loss

== ENCOUNTER → 2018-12-20 10:30 | Outpatient (CLI) | payer MEDICAID ==
[2018-11-19 20:00] VITALS: BMI 18.1
[~2018-12-20 10:30] MED LIST changes: +BROVANA15 MCG/2 M INH; +ELIQUIS5 MG PO; +NICOTINE 14 MG/24 HR TD; +Nicoderm [PBKC] TRANSDERM; +OMNICEF300 MG PO; +PREDNISONE10 MG PO; +PULMICORT0.5 MG/21 UPD; +XOPENEX 0.0.63 MG/3 UPD
== END | disposition home or self-care (01) ==
LOC: D.RAD 10:30
PROVIDERS: ATTEND Internal Medicine Cardiovascular Disease
DX: J43.9 Emphysema, unspecified (principal)

== ENCOUNTER 2018-12-20 13:28 | Inpatient (IN) | payer MEDICAID ==
[~2018-12-20] VITALS: Ht 180.3 cm; Wt 63.1 kg
[2018-12-20 14:01] VITALS: BP 97/70
--- NOTE | 2018-12-20 14:20 | NUR ---
NEW PATIENT ADMIT VIA WC AND HOSPITAL PERSONNEL DIRECT FROM DR NIX OFFICE. PATIENT IS AMBULATORY, AWAKE, ALERT AND ORIENTED X 4. PATIENT IN NO ACUTE DISTRESS. VS TAKEN. 02 SAT 89% ON RA. O2 PER NC @ 2L [id number]%. ASSESSMENT COMPLETED. INSPIRATORY AND EXPIRATORY WHEEZE NOTED. IV TO LT AC 22G WITH 2 ATTEMPTS SALINE LOCKED. PATIENT IN GOWN, NON SLIP SOCKS APPLIED. ORIENTED TO ROOM AND CALL LIGHT. PATIENT DENIES ANY NEEDS OR PAIN. WILL CONTINUE WITH PLAN OF CARE. SR UP X 2 BED IN LOW POSITION AND CALL LIGHT IN REACH.
[2018-12-20 14:26] LABS: HEMATOCRIT 42.8 % (42.0-54.0); HEMOGLOBIN 14.2 g/dL (13.5-17.5); MCH 30.3 pg (26.0-34.0); MCHC 33.2 g/dL (31.0-37.0); MCV 91.3 fL (80.0-100.0); MEAN PLATELET VOLUME 9.3 fL (7.4-10.4); RBC 4.69 10x6/uL (4.20-6.10); RDW 14.3 % (11.5-14.5); WBC 5.1 10x3/uL (4.8-10.8)
[2018-12-20 14:40] LABS: ALBUMIN 3.2 g/dL (3.4-5.0); ALKALINE PHOSPHATASE 112 U/L (46-116); ALT (SGPT) 28 U/L (10-68); BILIRUBIN - TOTAL 0.27 mg/dL (0.2-1.3); CALC OSMOLALITY 287 mosm/kg (275-300); CALCIUM 8.3 mg/dL (8.5-10.1); CARBON DIOXIDE 29.4 mmol/L (21.0-32.0); CHLORIDE - SERUM 101 mmol/L (98-107); CREATININE - SERUM 0.9 mg/dL (0.6-1.3); GLUCOSE 255 mg/dL (74-106); POTASSIUM - SERUM 4.5 mmol/L (3.5-5.1); SODIUM 140 mmol/L (136-145); UREA NITROGEN 12 mg/dL (7-18); eGFR NON AFRICAN AMERICAN > 90 mL/min (90-120)
[2018-12-20 15:04] VITALS: BP 97/70; BMI 17.3
[2018-12-20 15:39] VITALS: BP 106/74
--- NOTE | 2018-12-20 19:31 | NUR ---
RECEIVED REPORT, WILL ASSUME CARE OF PT, PT IS SLEEPING, FAMILY AT BEDSIDE, BED IS LOW, SRX2, CALL LIGHT IN REACH, WILL CONTINUE PLAN OF CARE
[2018-12-20 20:00] VITALS: BP 110/74
--- NOTE | 2018-12-20 21:17 | NUR ---
[id number] 6 UNITS HUMULIN R, PM MEDS GIVEN, PROVIDED FRESH ICE WATER, CALL LIGHT IN REACH, WILL CONTINUE PLAN OF CARE
[2018-12-21] VITALS: BP 98/68
--- NOTE | 2018-12-21 02:51 | NUR ---
I have reviewed this patient and I concur with the Shift Assessment completed by the Licensed Practical Nurse today this shift.
[2018-12-21 04:00] VITALS: BP 89/54
[2018-12-21 05:56] LABS: BASOPHILS 0 % (0-2); EOSINOPHILS 0 % (0-7); HEMATOCRIT 41.1 % (42.0-54.0); HEMOGLOBIN 13.4 g/dL (13.5-17.5); LYMPHOCYTES 10.1 % (15-50); MCH 29.5 pg (26.0-34.0); MCHC 32.6 g/dL (31.0-37.0); MCV 90.3 fL (80.0-100.0); MEAN PLATELET VOLUME 9.3 fL (7.4-10.4); MONOCYTES 1.1 % (2-11); NEUTROPHILS 88.8 % (40-80); PLATELET COUNT 172 10x3/uL (130-400); RBC 4.55 10x6/uL (4.20-6.10); RDW 13.6 % (11.5-14.5)
[2018-12-21 05:57] LABS: WBC 3.8 10x3/uL (4.8-10.8)
[2018-12-21 06:23] LABS: ALBUMIN 2.8 g/dL (3.4-5.0); ALKALINE PHOSPHATASE 98 U/L (46-116); ALT (SGPT) 28 U/L (10-68); BILIRUBIN - TOTAL 0.43 mg/dL (0.2-1.3); CALC OSMOLALITY 283 mosm/kg (275-300); CALCIUM 8.3 mg/dL (8.5-10.1); CHLORIDE - SERUM 102 mmol/L (98-107); CREATININE - SERUM 0.7 mg/dL (0.6-1.3); GLUCOSE 261 mg/dL (74-106); MAGNESIUM - SERUM 1.8 mg/dL (1.8-2.4); PROTEIN - SERUM 6.5 g/dL (6.4-8.2); SODIUM 137 mmol/L (136-145); UREA NITROGEN 15 mg/dL (7-18); eGFR NON AFRICAN AMERICAN > 90 mL/min (90-120)
[2018-12-21 06:30] LABS: POTASSIUM - SERUM 5.4 mmol/L (3.5-5.1)
--- NOTE | 2018-12-21 07:10 | NUR ---
REPORT RECEIVED FROM FUR BLOWER AND PATIENT CARE ASSUMED. PATIENT LAYING IN BED ON LT SIDE WITH EYES CLOSED AND BREATHING EVENLY. VSS. WILL CONTINUE WITH PLAN OF CARE . SR UP X 2 BED IN LOW POSITION.
[2018-12-21 08:00] VITALS: BP 92/60
--- NOTE | 2018-12-21 10:00 | NUR ---
PATIENT ASSESSMENT COMPLETED.PATIENT IS STABLE.
[2018-12-21 12:00] VITALS: BP 106/64
[2018-12-21 13:02] VITALS: BMI 17.3
--- NOTE | 2018-12-21 16:00 | NUR ---
PATIENT RESTING COMFORTABLY IN BED WITH EYES CLOSED AND BREATHING EVENLY. WILL CONTINUE TO MONITOR. SR UP X 2 BED IN LOW POSTION AND CALL LIGHT IN REACH.
--- NOTE | 2018-12-21 16:19 | NUR ---
PATIENT LAYING IN BED. FAMILY AT BEDSIDE. PATIENT IS STABLE AND VSS. PATIENT DENIES ANY NEEDS OR PAIN. WILL CONTINUE TO MONITOR.
[2018-12-21 16:30] VITALS: BP 98/61
--- NOTE | 2018-12-21 16:30 | NUR ---
PATIENT BS 478. JACQUIE BARNES ON UNIT. RECIEVED NEW ORDER TO CHANGE HUMULIN R SCALE TO INTERMEDIATE RESISTANCE. MEDICATED PER MAR WITH HUMULIN R 20UNITS SUBQ. WILL CONTINUE TO MONITOR.
--- NOTE | 2018-12-21 19:24 | NUR ---
RECEIVED REPORT, WILL ASSUME CARE OF PT, DENIES ANY NEEDS, VISITING WITH FAMILY, BED IS LOW, SRX2, CALL LIGHT IN REACH, WILL CONTINUE PLAN OF CARE
[2018-12-21 20:18] VITALS: BP 100/66
[2018-12-22] VITALS (7 sets, daily range): BP systolic 85–138; BP diastolic 50–65
--- NOTE | 2018-12-22 00:44 | NUR ---
I have reviewed this patient and I concur with the Shift Assessment completed by the Licensed Practical Nurse today this shift.
[2018-12-22 05:49] LABS: BASOPHILS 0 % (0-2); EOSINOPHILS 0 % (0-7); HEMATOCRIT 40.3 % (42.0-54.0); HEMOGLOBIN 13.7 g/dL (13.5-17.5); IMMATURE GRANULOCYTES 0.1 % (0-5); LYMPHOCYTES 5.2 % (15-50); MCH 29.8 pg (26.0-34.0); MEAN PLATELET VOLUME 9.7 fL (7.4-10.4); MONOCYTES 1.6 % (2-11); NEUTROPHILS 93.1 % (40-80); PLATELET COUNT 187 10x3/uL (130-400); RBC 4.59 10x6/uL (4.20-6.10); RDW 13.4 % (11.5-14.5)
[2018-12-22 05:50] LABS: MCV 87.8 fL (80.0-100.0); WBC 13.5 10x3/uL (4.8-10.8)
[2018-12-22 06:17] LABS: ALBUMIN 2.7 g/dL (3.4-5.0); ALKALINE PHOSPHATASE 90 U/L (46-116); ALT (SGPT) 25 U/L (10-68); BILIRUBIN - TOTAL 0.44 mg/dL (0.2-1.3); CALC OSMOLALITY 282 mosm/kg (275-300); CALCIUM 8.5 mg/dL (8.5-10.1); CARBON DIOXIDE 31.9 mmol/L (21.0-32.0); CHLORIDE - SERUM 102 mmol/L (98-107); CREATININE - SERUM 0.7 mg/dL (0.6-1.3); MAGNESIUM - SERUM 1.9 mg/dL (1.8-2.4); PROTEIN - SERUM 6.3 g/dL (6.4-8.2); SODIUM 138 mmol/L (136-145); UREA NITROGEN 15 mg/dL (7-18); eGFR NON AFRICAN AMERICAN > 90 mL/min (90-120)
[2018-12-22 06:21] LABS: GLUCOSE 208 mg/dL (74-106)
--- NOTE | 2018-12-22 07:30 | NUR ---
A/A/OX4. DENIES ANY PAIN OR DISCOMFORT. IS FEELING A LITTLE SOB WITH ACTIVITY BUT RESTING QUIETLY AT THIS TIME AND HAS 02 ON AT 2 L/M PER N/C. NO DISTRESS NOTED AT THIS TIME. ASSESSMENT COMPLETED AND WILL CONTINUE POC.
--- NOTE | 2018-12-22 11:35 | NUR ---
FSBS 442. GIVEN 20 UNITS HUM R AND CALL PUT IN TO MOLLY Licea APRN.
--- NOTE | 2018-12-22 12:31 | NUR ---
MOLLY Licea RETURNED CALL AND ORDER RECEIVED FOR NO EXTRA INSULIN DUT TO FSBS OF 442.
--- NOTE | 2018-12-22 18:36 | NUR ---
IV LEFT AC INFILTRATED. DC'D WITH CATH TIP INTACT. ATTEMPTED TO RESTART X2 BUT WITHOUT SUCCESS THEREFORE, UNABLE TO GIVE 1800 CEFEPIME.
--- NOTE | 2018-12-22 19:21 | NUR ---
RESITED 20G. IV-RFA- 1 ATTEMPT
--- NOTE | 2018-12-22 19:40 | NUR ---
RECEIVED REPORT, WILL ASSUME CARE OF PT, DENIES ANY NEEDS AT THIS TIME, BED IS LOW, SRX2, CALL LIGHT IN REACH, WILL CONTINUE PLAN OF CARE
--- NOTE | 2018-12-23 00:07 | NUR ---
SLEEPING, NO DISTRESS NOICED, CALL LIGHT IN REACH, WILL CONTINUE PLAN OF CARE
--- NOTE | 2018-12-23 01:42 | NUR ---
I have reviewed this patient and I concur with the Shift Assessment completed by the Licensed Practical Nurse today this shift.
[2018-12-23 03:45] VITALS: BP 93/63
[2018-12-23 05:09] LABS: BASOPHILS 0 % (0-2); EOSINOPHILS 0 % (0-7); HEMATOCRIT 37.6 % (42.0-54.0); HEMOGLOBIN 12.6 g/dL (13.5-17.5); IMMATURE GRANULOCYTES 0.2 % (0-5); LYMPHOCYTES 4.7 % (15-50); MCH 29.6 pg (26.0-34.0); MCHC 33.5 g/dL (31.0-37.0); MCV 88.3 fL (80.0-100.0); MEAN PLATELET VOLUME 9.3 fL (7.4-10.4); MONOCYTES 1.4 % (2-11); NEUTROPHILS 93.7 % (40-80); PLATELET COUNT 151 10x3/uL (130-400); RBC 4.26 10x6/uL (4.20-6.10); RDW 13.7 % (11.5-14.5); WBC 10.2 10x3/uL (4.8-10.8)
[2018-12-23 05:20] LABS: ALBUMIN 2.6 g/dL (3.4-5.0); ALKALINE PHOSPHATASE 81 U/L (46-116); ALT (SGPT) 27 U/L (10-68); BILIRUBIN - TOTAL 0.33 mg/dL (0.2-1.3); CALC OSMOLALITY 283 mosm/kg (275-300); CALCIUM 8.3 mg/dL (8.5-10.1); CARBON DIOXIDE 30.6 mmol/L (21.0-32.0); CHLORIDE - SERUM 101 mmol/L (98-107); CREATININE - SERUM 0.7 mg/dL (0.6-1.3); MAGNESIUM - SERUM 1.9 mg/dL (1.8-2.4); POTASSIUM - SERUM 5.2 mmol/L (3.5-5.1); PROTEIN - SERUM 5.8 g/dL (6.4-8.2); SODIUM 136 mmol/L (136-145); UREA NITROGEN 17 mg/dL (7-18); eGFR NON AFRICAN AMERICAN > 90 mL/min (90-120)
[2018-12-23 05:21] LABS: GLUCOSE 285 mg/dL (74-106)
[2018-12-23 07:55] VITALS: BP 97/58
[2018-12-23 12:06] VITALS: BP 95/54
--- NOTE | 2018-12-23 12:24 | NUR ---
I have reviewed this patient and I concur with the Shift Assessment completed by the Licensed Practical Nurse today this shift.
--- NOTE | 2018-12-23 16:14 | NUR ---
WITHOUT CHANGES OR DISTRESS NOTED AT THIS TIME. DENIES NEEDS.
[2018-12-23 16:30] VITALS: BP 94/54
[2018-12-23 16:46] VITALS: Ht 180.3 cm; Wt 63.1 kg
--- NOTE | 2018-12-23 19:20 | NUR ---
RECEIVED REPORT, WILL ASSUME CARE OF PT, ASKING ME TO BRING JOSUÉ WITH PM MEDS, BED IS LOW, SRX2, CALL LIGHT IN REACH, WILL CONTINUE PLAN OF CARE
--- NOTE | 2018-12-23 20:45 | NUR ---
GAVE NORCO ORDERED
[2018-12-23 21:24] VITALS: BP 100/55
[2018-12-24 00:36] VITALS: BP 98/64
--- NOTE | 2018-12-24 05:28 | NUR ---
I have reviewed this patient and I concur with the Shift Assessment completed by the Licensed Practical Nurse today this shift.
[2018-12-24 05:37] VITALS: BP 94/61
[2018-12-24 05:43] LABS: BASOPHILS 0 % (0-2); EOSINOPHILS 0 % (0-7); HEMATOCRIT 37.5 % (42.0-54.0); HEMOGLOBIN 12.6 g/dL (13.5-17.5); IMMATURE GRANULOCYTES 0.3 % (0-5); LYMPHOCYTES 7.5 % (15-50); MCH 29.7 pg (26.0-34.0); MCHC 33.6 g/dL (31.0-37.0); MCV 88.4 fL (80.0-100.0); MEAN PLATELET VOLUME 9.1 fL (7.4-10.4); MONOCYTES 2.5 % (2-11); NEUTROPHILS 89.7 % (40-80); PLATELET COUNT 149 10x3/uL (130-400); RBC 4.24 10x6/uL (4.20-6.10); RDW 13.9 % (11.5-14.5)
[2018-12-24 05:50] LABS: WBC 7.5 10x3/uL (4.8-10.8)
[2018-12-24 05:54] LABS: ALBUMIN 2.6 g/dL (3.4-5.0); ALKALINE PHOSPHATASE 76 U/L (46-116); BILIRUBIN - TOTAL 0.45 mg/dL (0.2-1.3); CALCIUM 8.1 mg/dL (8.5-10.1); CHLORIDE - SERUM 99 mmol/L (98-107); MAGNESIUM - SERUM 1.7 mg/dL (1.8-2.4); POTASSIUM - SERUM 5.1 mmol/L (3.5-5.1); PROTEIN - SERUM 5.8 g/dL (6.4-8.2); SODIUM 134 mmol/L (136-145); UREA NITROGEN 21 mg/dL (7-18)
[2018-12-24 06:00] LABS: ALT (SGPT) 38 U/L (10-68); CALC OSMOLALITY 277 mosm/kg (275-300); CREATININE - SERUM 0.9 mg/dL (0.6-1.3); GLUCOSE 217 mg/dL (74-106); eGFR NON AFRICAN AMERICAN > 90 mL/min (90-120)
--- NOTE | 2018-12-24 07:41 | NUR ---
ALERT AND ORIENTED X 4. LUNGS DIMINISHED BILATERALLY. HEART SOUNDS S1 AND S2 HERAD IN ALL GREEN. BOWEL SOUNDS ACTIVE X 4. SKIN INTACT WITHOUT REDNESS. IV TO RFA PATENT WITHOUT REDNESS. DENIES PAIN. REQUESTED AND GIVEN CUP OF COFFEE. DENIES FURTHER NEEDS. BED LOW. CALL BATISTA AND PERSONAL ITEMS IN REACH. WILL CONTINUE TO MONITOR.
[2018-12-24 07:56] VITALS: BP 105/66
--- NOTE | 2018-12-24 10:11 | NUR ---
RESTING IN BED. VANCOMYCIN INFUSIONING. REQUESTS SHOWER WHEN VANC COMPLETE AND HOLD OFF ON ROCEPHIN UNTIL AFTER SHOWER. DENIES FURTHER NEEDS.
--- NOTE | 2018-12-24 10:41 | NUR ---
PATIENT UNHOOKED FROM IV FOR SHOWER PER REQUEST.
--- NOTE | 2018-12-24 11:44 | NUR ---
NEED SPUTUM FROM PATIENT. NO COUGH NOTED.
--- NOTE | 2018-12-24 11:59 | NUR ---
SITTING IN BED EATING LUNCH. DENIES NEEDS.
[2018-12-24 12:03] VITALS: BP 101/64
--- NOTE | 2018-12-24 13:31 | NUR ---
Nutrition follow-up: Diet: ADA consistent CHO PO intake 100% of all meals Labs reviewed Wt: 132# +BM RDN following.
--- NOTE | 2018-12-24 15:38 | NUR ---
STATES IS HAVING PRODUCTIVE COUGH ON OCASSION. SPUTUM COLLECTION CUP AT BEDSIDE.
[2018-12-24 15:55] VITALS: BP 102/60
--- NOTE | 2018-12-24 17:21 | NUR ---
DINNER AT BEDSIDE. DENIES NEEDS.
--- NOTE | 2018-12-24 18:14 | NUR ---
RESTING IN BED. DENIES PAIN. DENIES NEEDS.
--- NOTE | 2018-12-24 19:00 | NUR ---
PT IN BED. DENIES NEEDS AT THIS TIME.
[2018-12-24 20:28] VITALS: BP 90/52
[2018-12-25 00:14] VITALS: BP 104/64
[2018-12-25 04:46] VITALS: BP 104/70
[2018-12-25 06:10] LABS: BASOPHILS 0 % (0-2); EOSINOPHILS 0 % (0-7); HEMATOCRIT 41.1 % (42.0-54.0); HEMOGLOBIN 13.8 g/dL (13.5-17.5); IMMATURE GRANULOCYTES 0.2 % (0-5); LYMPHOCYTES 7.9 % (15-50); MCHC 33.6 g/dL (31.0-37.0); MCV 89.3 fL (80.0-100.0); MEAN PLATELET VOLUME 10.2 fL (7.4-10.4); MONOCYTES 2.6 % (2-11); NEUTROPHILS 89.3 % (40-80); PLATELET COUNT 171 10x3/uL (130-400); RDW 14.1 % (11.5-14.5); WBC 5.7 10x3/uL (4.8-10.8)
[2018-12-25 06:33] LABS: ALKALINE PHOSPHATASE 91 U/L (46-116); BILIRUBIN - TOTAL 0.37 mg/dL (0.2-1.3); CALCIUM 8.7 mg/dL (8.5-10.1); CARBON DIOXIDE 33.5 mmol/L (21.0-32.0); CHLORIDE - SERUM 98 mmol/L (98-107); CREATININE - SERUM 0.8 mg/dL (0.6-1.3); POTASSIUM - SERUM 5.1 mmol/L (3.5-5.1); PROTEIN - SERUM 6.3 g/dL (6.4-8.2); SODIUM 137 mmol/L (136-145); UREA NITROGEN 19 mg/dL (7-18); eGFR NON AFRICAN AMERICAN > 90 mL/min (90-120)
[2018-12-25 06:34] LABS: ALT (SGPT) 51 U/L (10-68); CALC OSMOLALITY 284 mosm/kg (275-300); GLUCOSE 269 mg/dL (74-106)
--- NOTE | 2018-12-25 07:05 | NUR ---
MORNING ROUNDS MADE. PT LAYING IN BED RESTING. DENIES NEEDS AT THIS TIME. FALL PRECAUTIONS IN PLACE. BED LOWERED AND LOCKED. CL IN REACH. WILL CTM.
[2018-12-25 08:15] VITALS: BP 112/74
--- NOTE | 2018-12-25 09:22 | NUR ---
VITALS STABLE. TOOK MEDS WITHOUT DIFFICULTY. A/O X 4. IV TO R FA, PATENT, DRSG C/D/I, NO REDNESS OR EDEMA NOTED. 2L 02 VIA NC. NO EDEMA NOTED AT THIS TIME. BREATHING EVEN AND UNLABORED. DENIES FURTHER CONCERNS/NEEDS. FALL PRECAUTIONS IN PLACE. NON SKID SOCKS IN PLACE. BED LOWERED AND LOCKED. CL IN REACH. WILL CTM.
--- NOTE | 2018-12-25 10:09 | NUR ---
I have reviewed this patient and I concur with the Shift Assessment completed by the Licensed Practical Nurse today this shift.
[2018-12-25 11:40] VITALS: BP 108/74
--- NOTE | 2018-12-25 13:09 | NUR ---
Nutrition follow-up: Visited with pt re: DM diet Pt has been ordering too many CHO at meals. Pt states he is saving some food for between meals due to getting hungry. Pt is taking steroids for breathing issues. RDN educated pt on ordering low CHO foods to keep glucose under better control. RDN also order pt a whole sandwich for HS snack. RDN will continue to follow.
[2018-12-25 15:24] VITALS: BP 103/67
--- NOTE | 2018-12-25 17:05 | MORECARE ---
CASE MANAGEMENT DISCHARGE SUMMARY PATIENT: DANIA LANDRUM UNIT: [id number] ADM DATE: 12/20/18 AGE: 53 : 69 SEX: M ROOM/BED: D.2129 AUTHOR: PITO KAYE PHYSICIAN: REFERRING PHYSICIAN: JEREMIE NIX MD DATE OF SERVICE: 12/25/18 Discharge Plan Patient Name: DANIA LANDRUM Facility: [facility]:[place] : 1965 Planned Disposition: Home Anticipated Discharge Date: 12/26/18 Discharge Date: Expected LOS: 6 Initial Reviewer: [email or web address] Initial Review Date: 12/25/2018 Generated: 12/25/18 6:05 pm Patient Name: DANIA LANDRUM Page 76127 at 1705 All edits/amendments must be made on the electronic document DICTATION DATE: 12/25/181703 HOSPITAL TECHNICIAN: GEORGI 12/25/181703 RPT#: [id number] DC DATE: STATUS: ADM IN [facility] [address] [place] [address] END OF REPORT
--- NOTE | 2018-12-25 17:13 | MORECARE ---
CASE MANAGEMENT DISCHARGE SUMMARY PATIENT: DANIA LANDRUM UNIT: [id number] ADM DATE: 12/20/18 AGE: 53 : 69 SEX: M ROOM/BED: D.7943 AUTHOR: VARGAS,DOC PHYSICIAN: REFERRING PHYSICIAN: JEREMIE NIX MD DATE OF SERVICE: 12/25/18 Discharge Plan Patient Name: DANIA LANDRUM Facility: [facility]:[place] : 1965 Planned Disposition: Home Anticipated Discharge Date: 12/26/18 Discharge Date: Expected LOS: 6 Initial Reviewer: [email or web address] Initial Review Date: 12/25/2018 Generated: 12/25/18 6:13 pm Comments DCP- Discharge Planning Updated by [email or web address]: Orlando Pina on 12/25/18 4:[address] Patient Name: DANIA LANDRUM Admission Status: Elective Accout number: [id number] Admission Date: 12-20-2018 : 1965 Admission Diagnosis:SHORTNESS OF BREATH Attending: JEREMIE CORDOVA Current LOS: 5 Anticipated DC Date: 12-26-2018 Planned Disposition: Home Primary Insurance: MEDICAID [place] Discharge Planning Comments: CM MET WITH PT IN ROOM TO DISCUSS DISCHARGE PLANNING AND NEEDS. PT REPORTS LIVING AT HOME INDEPENDENTLY AND ALONE. PT HAS NEBULIZER AND OXYGEN, HOME AND A TANK, FROM [facility] IN [facility]. PT HAS NO OUTSIDE SERVICES ASSISTING IN THE HOME. CM DISCUSSED AVAILABILITY OF HOME HEALTH, REHAB SERVICES AND MEDICAL EQUIPMENT. PT DENIES DISCHARGE NEEDS, REPORTS FAMILY WILL PICK HIM UP FOR DISCHARGE HOME. PT PLANS TO DISCHARGE HOME ALONE, HAS NO ANTICIPATED DISCHARGE NEEDS AT THIS TIME. CM TO FOLLOW AND ASSIST NEEDED. Mobility Developer: Orlando Pina DCPIA - Discharge Planning Initial Assessment Updated by [id number]: Orlando Pina on 12/25/18 5:10 pm * Is the patient Alert and Oriented? Yes * How many steps to enter\exit or inside your home? * PCP DR. VEGA * Pharmacy [facility] [address] * Preadmission Environment Home Alone * ADLs Independent * Equipment Nebulizer Ostomy Supplies * Other Equipment HOME OXYGEN [facility] - PROVIDER * List name and contact numbers for known caregivers / representatives who currently or will assist patient after discharge: DANIA, BROTHER, IKER, DTR, * Verbal permission to speak to the caregivers and representatives has been obtained from the patient. N/A * Community resources currently utilized None * Please name any agencies selected above. NONE * Additional services required to return to the preadmission environment? No * Can the patient safely return to the preadmission environment? Yes * Has this patient been hospitalized within the prior 30 days at any hospital? Yes Last DP export: 12/25/18 4:05 p Patient Name: DANIA LANDRUM Page 75697 at 1713 All edits/amendments must be made on the electronic document DICTATION DATE: 12/25/181712 TREATING PLANT PUMPER: GEORGI 12/25/181712 RPT#: [id number] DC DATE: STATUS: ADM IN [facility] [address] [place] [address] END OF REPORT
--- NOTE | 2018-12-25 19:27 | NUR ---
PT C/O PAIN TO R FA WHERE IV IS PLACED. REDNESS NOTED AT THE SITE. IV REMOVED WITH CATH TIP INTACT.
[2018-12-25 22:50] VITALS: BP 112/79
[2018-12-26 05:14] VITALS: BP 92/64
[2018-12-26 06:31] LABS: BASOPHILS 0 % (0-2); EOSINOPHILS 0.6 % (0-7); HEMATOCRIT 41.9 % (42.0-54.0); HEMOGLOBIN 13.9 g/dL (13.5-17.5); IMMATURE GRANULOCYTES 0.1 % (0-5); LYMPHOCYTES 16.3 % (15-50); MCH 29.8 pg (26.0-34.0); MCHC 33.2 g/dL (31.0-37.0); MCV 89.9 fL (80.0-100.0); MEAN PLATELET VOLUME 9.9 fL (7.4-10.4); MONOCYTES 5.7 % (2-11); NEUTROPHILS 77.3 % (40-80); PLATELET COUNT 153 10x3/uL (130-400); RBC 4.66 10x6/uL (4.20-6.10); RDW 14.1 % (11.5-14.5)
[2018-12-26 06:53] LABS: CALCIUM 8.6 mg/dL (8.5-10.1); CARBON DIOXIDE 38.8 mmol/L (21.0-32.0); CHLORIDE - SERUM 100 mmol/L (98-107); CREATININE - SERUM 0.7 mg/dL (0.6-1.3); SODIUM 140 mmol/L (136-145); UREA NITROGEN 21 mg/dL (7-18); eGFR NON AFRICAN AMERICAN > 90 mL/min (90-120)
[2018-12-26 06:56] LABS: CALC OSMOLALITY 280 mosm/kg (275-300); GLUCOSE 72 mg/dL (74-106)
[2018-12-26 07:27] VITALS: BP 101/65
--- NOTE | 2018-12-26 07:30 | NUR ---
ROUNDING DONE WITH PAITENT BEING ON 2L PER NC AT THIS TIME. ON EP, K+ IS 4.0. NO IV ACCESS AT THIS TIME. DENIES NEEDS. WILL MONITOR.
[2018-12-26 11:10] VITALS: BP 113/75
[2018-12-26] MEDS ORDERED: OMNICEF300 MG PO (13:01)
[2018-12-26] MEDS ORDERED: VIBRAMYCIN 100100 MG PO (13:01)
[2018-12-26] MEDS ORDERED: SINGULAIR10 MG PO (13:02)
[2018-12-26] MEDS ORDERED: PROTONIX40 MG PO (13:02)
[2018-12-26] MEDS ORDERED: PREDNISONE20 MG PO (13:05)
[2018-12-26 15:22] VITALS: BP 97/64
--- NOTE | 2018-12-26 15:34 | NUR ---
AWAITING DR CANO TO MAKE ROUNDS TO SEE IF PATIENT WILL BE DISCHARGED.
--- NOTE | 2018-12-26 15:51 | NUR ---
PATIENT STATES THAT DR CANO HAS SEEN HIM AND THAT HE CAN BE DISCHARGED HOME. PATIENT STATES THAT HE NEEDS TO WAIT ON HIS SON. I TOLD PATIENT THAT TO LET ME KNOW WHEN HE GETS HERE ADN THAT SINCE PAIN MEDICATION WAS RECENTLY GIVEN, I NEEDED TO WAIT AT LEAST AN HOUR.
--- NOTE | 2018-12-26 16:51 | NUR ---
SON IS HERE AND PATIENT IS EATING SUPPER. WILL DISCHARGE PAST EATING SUPPER.
--- NOTE | 2018-12-26 17:50 | NUR ---
VERBAL AND WRITTEN DISCHARGE INSTRUCTIONS GIVEN TO PATIENT. DISCHARGED HOME VIA WHEELCHAIR.
--- NOTE | 2018-12-27 08:24 | MORECARE ---
CASE MANAGEMENT DISCHARGE SUMMARY PATIENT: DANIA LANDRUM UNIT: [id number] ADM DATE: 12/20/18 AGE: 53 : 69 SEX: M ROOM/BED: D.0929 AUTHOR: VARGAS,DOC PHYSICIAN: REFERRING PHYSICIAN: JEREMIE NIX MD DATE OF SERVICE: 12/27/18 Discharge Plan Patient Name: DANIA LANDRUM Facility: [facility]:[place] : 1965 Planned Disposition: Home Anticipated Discharge Date: 12/26/18 Discharge Date: 12/26/2018 Expected LOS: 6 Initial Reviewer: [email or web address] Initial Review Date: 12/25/2018 Generated: 12/27/18 9:24 am Comments DCP- Discharge Planning Updated by [email or web address]: Orlando Pina on 12/25/18 4:[address] Patient Name: DANIA LANDRUM Admission Status: Elective Accout number: [id number] Admission Date: 12-20-2018 : 1965 Admission Diagnosis:SHORTNESS OF BREATH Attending: JEREMIE CORDOVA Current LOS: 5 Anticipated DC Date: 12-26-2018 Planned Disposition: Home Primary Insurance: MEDICAID [place] Discharge Planning Comments: CM MET WITH PT IN ROOM TO DISCUSS DISCHARGE PLANNING AND NEEDS. PT REPORTS LIVING AT HOME INDEPENDENTLY AND ALONE. PT HAS NEBULIZER AND OXYGEN, HOME AND A TANK, FROM [facility]. PT HAS NO OUTSIDE SERVICES ASSISTING IN THE HOME. CM DISCUSSED AVAILABILITY OF HOME HEALTH, REHAB SERVICES AND MEDICAL EQUIPMENT. PT DENIES DISCHARGE NEEDS, REPORTS FAMILY WILL PICK HIM UP FOR DISCHARGE HOME. PT PLANS TO DISCHARGE HOME ALONE, HAS NO ANTICIPATED DISCHARGE NEEDS AT THIS TIME. CM TO FOLLOW AND ASSIST NEEDED. Washer Meat: Orlando Pina DCPIA - Discharge Planning Initial Assessment Updated by [email or web address]: Orlando Pina on 12/25/18 5:10 pm * Is the patient Alert and Oriented? Yes * How many steps to enter\exit or inside your home? * PCP DR. VEGA * Pharmacy [facility] * Preadmission Environment Home Alone * ADLs Independent * Equipment Nebulizer Ostomy Supplies * Other Equipment HOME OXYGEN [facility] - PROVIDER * List name and contact numbers for known caregivers / representatives who currently or will assist patient after discharge: DANIA, BROTHER, IKER DTR, * Verbal permission to speak to the caregivers and representatives has been obtained from the patient. N/A * Community resources currently utilized None * Please name any agencies selected above. NONE * Additional services required to return to the preadmission environment? No * Can the patient safely return to the preadmission environment? Yes * Has this patient been hospitalized within the prior 30 days at any hospital? Yes Last DP export: 12/25/18 4:13 p Patient Name: DANIA LANDRUM Page 55404 at 0824 All edits/amendments must be made on the electronic document DICTATION DATE: 12/27/18822 INFORMATION SYSTEMS OPERATOR: GEORGI 12/27/18822 RPT#: [id number] DC DATE:12/26/18 STATUS: DIS IN [facility] [address] [place] [address] END OF REPORT
== END 2018-12-26 17:51 | disposition home or self-care (01) | DRG 199 ==
LOC: D.M2 13:28 → D.SDCHOLD 16:36 → D.M2 16:44
PROVIDERS: Internal Medicine Nephrology; ADMIT Family Medicine; ATTEND Family Medicine
DX: J93.9 Pneumothorax, unspecified (principal); J96.21 Acute and chronic respiratory failure with hypoxia; J15.6 Pneumonia due to other Gram-negative bacteria; J13 Pneumonia due to Streptococcus pneumoniae; J47.0 Bronchiectasis with acute lower respiratory infection; F17.213 Nicotine dependence, cigarettes, with withdrawal; I48.91 Unspecified atrial fibrillation; E11.65 Type 2 diabetes mellitus with hyperglycemia; Z86.73 Personal history of transient ischemic attack (TIA), and cerebral infarction without residual deficits; E87.5 Hyperkalemia; I25.10 Atherosclerotic heart disease of native coronary artery without angina pectoris

== ENCOUNTER → 2019-01-13 08:29 | Outpatient (CLI) | payer MEDICAID ==
[2018-12-23 16:46] VITALS: BMI 17.3
[~2019-01-13 08:29] MED LIST changes: +PREDNISONE20 MG PO; +PROTONIX40 MG PO; +SINGULAIR10 MG PO
== END | disposition home or self-care (01) ==
LOC: D.RAD
PROVIDERS: ATTEND Internal Medicine Pulmonary Disease
DX: J44.9 Chronic obstructive pulmonary disease, unspecified (principal)

== ENCOUNTER → 2019-03-19 10:47 | Outpatient (CLI) | payer MEDICAID ==
[2018-12-23 16:46] VITALS: BMI 17.3
== END | disposition home or self-care (01) ==
LOC: D.RT 03-14 10:45
PROVIDERS: ATTEND Family Medicine
DX: J44.9 Chronic obstructive pulmonary disease, unspecified (principal)

== ENCOUNTER 2019-06-15 14:01 | Inpatient (IN) | payer MEDICAID ==
[~2019-06-15] VITALS: Ht 180.3 cm; Wt 58.6 kg
[2019-06-15 14:36] LABS: BASOPHILS 0.2 % (0-2); EOSINOPHILS 0.1 % (0-7); HEMATOCRIT 48.3 % (42.0-54.0); HEMOGLOBIN 15.6 g/dL (13.5-17.5); IMMATURE GRANULOCYTES 0.3 % (0-5); LYMPHOCYTES 9.7 % (15-50); MCH 29.2 pg (26.0-34.0); MCHC 32.3 g/dL (31.0-37.0); MCV 90.4 fL (80.0-100.0); MEAN PLATELET VOLUME 9.8 fL (7.4-10.4); NEUTROPHILS 80.7 % (40-80); PLATELET COUNT 301 10x3/uL (130-400); RBC 5.34 10x6/uL (4.20-6.10); RDW 14.2 % (11.5-14.5); WBC 16.7 10x3/uL (4.8-10.8)
[2019-06-15 14:49] LABS: APTT 42.8 SECONDS (22.8-39.4); INR 1.1 (0.85-1.17); PROTIME 13.7 SECONDS (11.6-15.0)
[2019-06-15 14:51] LABS: CALC OSMOLALITY 275 mosm/kg (275-300); CALCIUM 8.6 mg/dL (8.5-10.1); CARBON DIOXIDE 31.7 mmol/L (21.0-32.0); CHLORIDE - SERUM 95 mmol/L (98-107); CREATININE - SERUM 1.6 mg/dL (0.6-1.3); GLUCOSE 97 mg/dL (74-106); POTASSIUM - SERUM 5.1 mmol/L (3.5-5.1); SODIUM 136 mmol/L (136-145); UREA NITROGEN 23 mg/dL (7-18); eGFR NON AFRICAN AMERICAN 48 mL/min (90-120)
[2019-06-15 15:14] LABS: ALBUMIN 3.1 g/dL (3.4-5.0); ALKALINE PHOSPHATASE 132 U/L (46-116); ALT (SGPT) 19 U/L (10-68); CKMB 3.6 U/L (0.0-3.6); CREATINE KINASE 54 UL (21-232); MAGNESIUM - SERUM 1.8 mg/dL (1.8-2.4); PROTEIN - SERUM 7.8 g/dL (6.4-8.2)
[2019-06-15 15:18] LABS: TROPONIN-I 0.155 ng/mL (0.000-0.060)
[2019-06-15 16:34] VITALS: BP 90/59
--- NOTE | 2019-06-15 16:45 | NUR ---
RAC PIV FLUSHED AND VEIN BLEW PRIXIMAL TO IV SITE.
[2019-06-15 17:30] VITALS: BP 86/61
[2019-06-15 18:30] VITALS: BP 88/60
[2019-06-15 18:30] LABS: CKMB 3.5 U/L (0.0-3.6); CREATINE KINASE 60 UL (21-232)
[2019-06-15 18:34] LABS: TROPONIN-I 0.299 ng/mL (0.000-0.060)
[2019-06-15 19:30] VITALS: BP 82/58
--- NOTE | 2019-06-15 20:08 | NUR ---
MONIKA VIA WC TRANSFERS WELL FROM ER TO BED LUNGS WITH WHZ AND TROP ELIVATED PT TOLD TO REMAIN NPO. BED LOW AND LOCKED. CALL LIGHT IS WITH PT. RN WILL DO ASSESSMENT
[2019-06-15 22:14] VITALS: BP 89/61; BMI 16.8
[2019-06-16 00:34] LABS: CKMB 5.4 U/L (0.0-3.6); CREATINE KINASE 52 UL (21-232)
[2019-06-16 00:35] LABS: TROPONIN-I 0.544 ng/mL (0.000-0.060)
[2019-06-16 04:00] VITALS: BP 91/61; BP 98/60
[2019-06-16 06:43] LABS: BASOPHILS 0 % (0-2); EOSINOPHILS 0 % (0-7); HEMATOCRIT 42.7 % (42.0-54.0); HEMOGLOBIN 13.6 g/dL (13.5-17.5); IMMATURE GRANULOCYTES 0.4 % (0-5); LYMPHOCYTES 7.5 % (15-50); MCH 28.3 pg (26.0-34.0); MCHC 31.9 g/dL (31.0-37.0); MEAN PLATELET VOLUME 9.7 fL (7.4-10.4); MONOCYTES 1.1 % (2-11); PLATELET COUNT 294 10x3/uL (130-400); RDW 13.4 % (11.5-14.5)
[2019-06-16 06:44] LABS: WBC 5.4 10x3/uL (4.8-10.8)
[2019-06-16 06:50] LABS: CALCIUM 8.3 mg/dL (8.5-10.1); CARBON DIOXIDE 32.9 mmol/L (21.0-32.0); CHLORIDE - SERUM 97 mmol/L (98-107); CREATINE KINASE 48 UL (21-232); SODIUM 135 mmol/L (136-145)
[2019-06-16 06:52] LABS: CALC OSMOLALITY 292 mosm/kg (275-300); GLUCOSE 398 mg/dL (74-106); POTASSIUM - SERUM 5.9 mmol/L (3.5-5.1); TROPONIN-I 0.472 ng/mL (0.000-0.060); UREA NITROGEN 30 mg/dL (7-18); eGFR NON AFRICAN AMERICAN 83 mL/min (90-120)
--- NOTE | 2019-06-16 06:55 | NUR ---
ALERT AND ORIENTED, RESTING IN BED. NO C/O PAIN. NO S/S OF ACUTE DISTRESS NOTED. ELEVATED TROPONIN AND POTASSIUM THIS AM. ON 2L O2, NC. LORA, LML, LLL WHEEZING AND RHONCI ASCULTATED, RUL WHEEZING RLL DIMINISHED. ON TELEMETRY SR 87. IV TO LEFT HAND NS INFUSING @ 75ML/HR. SITE PATENT WITHOUT REDNESS OR SWELLING. DENIES ANY NEEDS AT THIS TIME. CALL LIGHT IN REACH. WILL CONTINUE TO MONITOR.
[2019-06-16 08:00] VITALS: BP 89/56
--- NOTE | 2019-06-16 10:25 | NUR ---
CALLED DR. VEGA'S OFFICE TO HAVE THEM FAX OVER PATIENT'S CT AND EGD RESULTS PER DR. LUNA.
[2019-06-16 12:00] VITALS: BP 89/62
--- NOTE | 2019-06-16 12:16 | NUR ---
CALLED DR. VEGA'S OFFICE, SPOKE TO GARRETT ABOUT FAXING OVER INFORMATION REQUESTED BY DR. LUNA THIS AM. STATED SHE HAD FAXED IT TWICE. INFORMED HER THAT WE STILL HAVE NOT RECEIVED THE INFORMATION AND ASKED IF SHE COULD FAX IT AGAIN. STATED SHE WOULD.
[2019-06-16 12:30] LABS: CKMB 3.3 U/L (0.0-3.6); CREATINE KINASE 40 UL (21-232)
[2019-06-16 12:31] LABS: TROPONIN-I 0.451 ng/mL (0.000-0.060)
[2019-06-16 15:16] VITALS: BMI 16.7
[2019-06-16 15:42] VITALS: Ht 180.3 cm; Wt 58.6 kg
[2019-06-16 15:56] LABS: APPEARANCE CLEAR (CLEAR); COLOR YELLOW (YELLOW); GLUCOSE 1000 mg/dL (NEGATIVE); KETONE SMALL mg/dL (NEGATIVE); NITRITE NEGATIVE (NEGATIVE); PROTEIN NEGATIVE (NEGATIVE)
[2019-06-16 15:57] LABS: BILIRUBIN NEGATIVE (NEGATIVE); UROBILINOGEN NORMAL (NORMAL)
--- NOTE | 2019-06-16 16:49 | NUR ---
I AGREE WITH THE ASSESSMENT OF THE ROLLING MILL PLUGGER ON STAFF
--- NOTE | 2019-06-16 18:22 | NUR ---
ALERT AND ORIENTED, SITTING UP IN BED. FAMILY AT BEDSIDE. NO C/O PAIN. NO S/S OF ACUTE DISTRESS NOTED. DENIES ANY NEEDS AT THIS TIME. CALL LIGHT IN REACH. WILL CONTINUE TO MONITOR.
--- NOTE | 2019-06-16 19:10 | NUR ---
Awake in bed. pt expresses some unhappiness of current situation and treatments. lungs still with wheezes skin warm and dry bowel sounds x4 and iv is sl at this time pt eating and taking fluids well. bed is low and locked and call light is in reach.
[2019-06-16 20:00] VITALS: BP 100/60
[2019-06-17] VITALS: BP 100/65
[2019-06-17 04:25] VITALS: BP 114/74
[2019-06-17 05:22] LABS: BASOPHILS 0.1 % (0-2); EOSINOPHILS 0 % (0-7); HEMATOCRIT 40.4 % (42.0-54.0); HEMOGLOBIN 12.5 g/dL (13.5-17.5); IMMATURE GRANULOCYTES 0.3 % (0-5); LYMPHOCYTES 1.8 % (15-50); MCH 28.4 pg (26.0-34.0); MCHC 30.9 g/dL (31.0-37.0); MEAN PLATELET VOLUME 9.8 fL (7.4-10.4); MONOCYTES 4.9 % (2-11); NEUTROPHILS 92.9 % (40-80); PLATELET COUNT 274 10x3/uL (130-400); RDW 13.4 % (11.5-14.5)
[2019-06-17 05:34] LABS: MCV 91.8 fL (80.0-100.0); WBC 19.5 10x3/uL (4.8-10.8)
[2019-06-17 05:43] LABS: CALCIUM 8.2 mg/dL (8.5-10.1); CARBON DIOXIDE 35.8 mmol/L (21.0-32.0); CHLORIDE - SERUM 99 mmol/L (98-107); CREATININE - SERUM 0.8 mg/dL (0.6-1.3); SODIUM 136 mmol/L (136-145); eGFR NON AFRICAN AMERICAN > 90 mL/min (90-120)
[2019-06-17 05:59] LABS: CALC OSMOLALITY 286 mosm/kg (275-300); GLUCOSE 306 mg/dL (74-106); UREA NITROGEN 20 mg/dL (7-18)
[2019-06-17 06:00] LABS: POTASSIUM - SERUM 6.1 mmol/L (3.5-5.1)
--- NOTE | 2019-06-17 08:26 | NUR ---
AM MEDS GIVEN AT THIS TIME. PT IN BED, EATING BREAKFAST, DENIES ANY NEEDS AT THIS TIME. CALL LIGHT IN REACH, BEDSIDE RAILS X2, NAD NOTED, WILL CONTINUE TO MONITOR.
[2019-06-17 08:50] VITALS: BP 97/64
--- NOTE | 2019-06-17 11:30 | NUR ---
BLOOD SUGAR OF 466 GAVE 28 PER S/S. PT DENIES ANY NEEDS AT THIS TIME. CALL LIGHT IN REACH, NAD NOTED,W ILL CONTINUE TO MONITOR.
[2019-06-17 12:36] VITALS: BP 96/62
[2019-06-17 17:05] VITALS: BP 99/66
--- NOTE | 2019-06-17 19:08 | NUR ---
PT DENIES NEEDS AT THIS TIME BED IS LOW AND LOCKED IV FINISHING UP ANTIBIOTIC CALL LIGHT IS WITH PT AND FAMILY IS ALSO PRESENT
--- NOTE | 2019-06-17 19:42 | NUR ---
PT ESPRESSED PAIN WITH OTHER HOSPITAL PERSONEL....I SPOKE WITH PT AND MSO4 GIVEN
[2019-06-17 20:00] VITALS: BP 107/72
[2019-06-18] VITALS: BP 96/58
--- NOTE | 2019-06-18 02:51 | NUR ---
I have reviewed this patient and I concur with the Shift Assessment completed by the Licensed Practical Nurse today this shift.
[2019-06-18 04:00] VITALS: BP 94/57
[2019-06-18 04:27] LABS: BASOPHILS 0 % (0-2); EOSINOPHILS 0 % (0-7); HEMATOCRIT 36.6 % (42.0-54.0); HEMOGLOBIN 11.2 g/dL (13.5-17.5); IMMATURE GRANULOCYTES 0.4 % (0-5); LYMPHOCYTES 2.1 % (15-50); MCH 27.9 pg (26.0-34.0); MCHC 30.6 g/dL (31.0-37.0); MEAN PLATELET VOLUME 9.7 fL (7.4-10.4); MONOCYTES 6.9 % (2-11); NEUTROPHILS 90.6 % (40-80); PLATELET COUNT 252 10x3/uL (130-400); RBC 4.02 10x6/uL (4.20-6.10); RDW 13.3 % (11.5-14.5)
[2019-06-18 05:03] LABS: CALC OSMOLALITY 284 mosm/kg (275-300); CALCIUM 7.8 mg/dL (8.5-10.1); CARBON DIOXIDE 39.6 mmol/L (21.0-32.0); CHLORIDE - SERUM 98 mmol/L (98-107); CREATININE - SERUM 0.6 mg/dL (0.6-1.3); GLUCOSE 271 mg/dL (74-106); SODIUM 137 mmol/L (136-145); UREA NITROGEN 16 mg/dL (7-18); eGFR NON AFRICAN AMERICAN > 90 mL/min (90-120)
[2019-06-18 05:04] LABS: POTASSIUM - SERUM 5.1 mmol/L (3.5-5.1)
--- NOTE | 2019-06-18 07:47 | NUR ---
A/A/OX4. DENIES ANY PAIN OR DISCOMFORT AND VOICES NOT REQUESTS. 02 ON PER N/C AT 2L/M WITH NO SOB OR RESP DISTRESS NOTED. SL PATENT TO LEFT HAND WITHOUT REDNESS OR EDEMA NOTED AT SITE. BED IN LOW POSITION AND CALL LIGHT IN REACH
[2019-06-18 08:45] VITALS: BP 94/63
--- NOTE | 2019-06-18 12:16 | NUR ---
Nutrition Follow-up: Good appetite/PO intake. Reports some nausea this AM but that it is better than yesterday. Drinking 1 Glucerna/day. Noted K+ normalized; received Kayexalate yesterday. Noted Lantus added today 2/2 blood sugars running high on steroids. Diet: Diabetic, Glucerna with breakfast, Limit high K+ foods PO intake: 100% No new wt Last BM: 06/18 Labs noted: Glu 271, K+ 5.1 Meds noted: Solumedrol, Humulin, Glucophage, Pancrease, Lantus -Continue current diet as tolerated. -RD following.
[2019-06-18 13:04] VITALS: BP 103/63
--- NOTE | 2019-06-18 15:08 | NUR ---
I have reviewed this patient and I concur with the Shift Assessment completed by the Licensed Practical Nurse today this shift.
[2019-06-18 17:44] VITALS: BP 99/63
--- NOTE | 2019-06-18 19:00 | NUR ---
EVENING ROUNDS COMPLETE, PT SITTING UP IN BED. FAMILY MEMBER AT BEDSIDE. AAOX4. NO SIGNS OF DISTRESS. PT DENIES ANY PAIN OR NEEDS AT THIS TIME. CL IN REACH, BED IN LOWEST POSITION.
[2019-06-18 20:00] VITALS: BP 98/60
[2019-06-19] VITALS (7 sets, daily range): BP systolic 95–166; BP diastolic 56–76
[2019-06-19 06:27] LABS: CALCIUM 8.4 mg/dL (8.5-10.1); CHLORIDE - SERUM 100 mmol/L (98-107); CREATININE - SERUM 0.6 mg/dL (0.6-1.3); POTASSIUM - SERUM 4.4 mmol/L (3.5-5.1); SODIUM 139 mmol/L (136-145); UREA NITROGEN 14 mg/dL (7-18); eGFR NON AFRICAN AMERICAN > 90 mL/min (90-120)
[2019-06-19 06:28] LABS: BASOPHILS 0 % (0-2); EOSINOPHILS 0 % (0-7); HEMATOCRIT 39.1 % (42.0-54.0); HEMOGLOBIN 12.2 g/dL (13.5-17.5); IMMATURE GRANULOCYTES 0.1 % (0-5); LYMPHOCYTES 4.8 % (15-50); MCH 28.2 pg (26.0-34.0); MCHC 31.2 g/dL (31.0-37.0); MCV 90.5 fL (80.0-100.0); MEAN PLATELET VOLUME 9.8 fL (7.4-10.4); NEUTROPHILS 92.1 % (40-80); PLATELET COUNT 247 10x3/uL (130-400); RBC 4.32 10x6/uL (4.20-6.10); RDW 13.4 % (11.5-14.5)
[2019-06-19 06:42] LABS: CALC OSMOLALITY 279 mosm/kg (275-300); GLUCOSE 115 mg/dL (74-106)
[2019-06-19 06:43] LABS: CARBON DIOXIDE 43.3 mmol/L (21.0-32.0)
[2019-06-19 06:45] LABS: WBC 11.4 10x3/uL (4.8-10.8)
--- NOTE | 2019-06-19 07:38 | NUR ---
PATIENT IS RESTING IN BED AT THIS ITME. HE IS ALERT AND AWAKE. DENIES ANY NEEDS AT THIS TIME. BED SIDE SHIFT REPORT RECIEVED.
--- NOTE | 2019-06-19 09:38 | NUR ---
patient is going to ct scan now
[2019-06-19 15:16] LABS: AMYLASE - SERUM 15 U/L (25-115)
[2019-06-19 15:17] LABS: LIPASE 17 U/L (73-393)
--- NOTE | 2019-06-19 17:25 | NUR ---
PATIENT IV IS GOING BAD. HE HAS AGREED TO LET ME ATTEMPT TO RESITE IT WHEN HE IS DONE EATTING.
--- NOTE | 2019-06-19 18:15 | NUR ---
IV PLACED IN RIGHT FOREARM, 22G ONE STICK. OLD IV IN LEFT HAND REMOVED WITH CATHETER INTACT BECAUSE IT HAD BEGUN TO INFILTRATE. PATIENT TOLERATED.
--- NOTE | 2019-06-19 20:02 | NUR ---
EVENING ROUNDS COMPETE. PT SITTING UP IN BED. FAMILY AT BEDSIDE. AAOX4. NO S/S OF DISTRESS. NO C/O PAIN. CL IN REACH, BED IN LOWEST POSITION.
[2019-06-20] VITALS: BP 107/72
[2019-06-20 05:54] LABS: BASOPHILS 0 % (0-2); EOSINOPHILS 0 % (0-7); HEMATOCRIT 38.9 % (42.0-54.0); HEMOGLOBIN 12.1 g/dL (13.5-17.5); IMMATURE GRANULOCYTES 0.1 % (0-5); LYMPHOCYTES 4.8 % (15-50); MCH 28.1 pg (26.0-34.0); MCHC 31.1 g/dL (31.0-37.0); MCV 90.3 fL (80.0-100.0); MEAN PLATELET VOLUME 9.8 fL (7.4-10.4); MONOCYTES 2.8 % (2-11); NEUTROPHILS 92.3 % (40-80); PLATELET COUNT 242 10x3/uL (130-400); RBC 4.31 10x6/uL (4.20-6.10); RDW 13.4 % (11.5-14.5); WBC 11.4 10x3/uL (4.8-10.8)
[2019-06-20 06:27] LABS: CALC OSMOLALITY 276 mosm/kg (275-300); CALCIUM 8.2 mg/dL (8.5-10.1); CHLORIDE - SERUM 99 mmol/L (98-107); CREATININE - SERUM 0.6 mg/dL (0.6-1.3); GLUCOSE 111 mg/dL (74-106); POTASSIUM - SERUM 4.3 mmol/L (3.5-5.1); SODIUM 138 mmol/L (136-145); UREA NITROGEN 12 mg/dL (7-18); eGFR NON AFRICAN AMERICAN > 90 mL/min (90-120)
--- NOTE | 2019-06-20 06:55 | NUR ---
REPORT RECEIVED. HE IS ALERT DENIES ANY C/O RESP EVEN WITHOUT LABOR. O2 IS ON RIGHT F/A WITH SALINE LOCK INTACT. BED IN LOWEST POSITION AND LOCKED. CAREPLAN REVIEW DONE WITH SAFETY PRECAUTIONS IN PLACE. CL IN REACH
[2019-06-20 09:10] VITALS: BP 101/69
[2019-06-20 11:04] LABS: ALBUMIN 2.3 g/dL (3.4-5.0); BILIRUBIN - DIRECT 0.05 mg/dL (0.00-0.30); BILIRUBIN - INDIRECT 0.18 mg/dL (0.00-1.00); BILIRUBIN - TOTAL 0.23 mg/dL (0.2-1.3); PROTEIN - SERUM 6.2 g/dL (6.4-8.2)
[2019-06-20 11:40] VITALS: BP 105/75
--- NOTE | 2019-06-20 15:24 | MORECARE ---
CASE MANAGEMENT DISCHARGE SUMMARY PATIENT: DANIA LANDRUM UNIT: [id number] ADM DATE: 06/15/19 AGE: 54 : 69 SEX: M ROOM/BED: D.2135 AUTHOR: PITO KAYE PHYSICIAN: REFERRING PHYSICIAN: MARYANN HANDY MD DATE OF SERVICE: 06/20/19 Discharge Plan Patient Name: DANIA LANDRUM Facility: [facility]:[place] : 1965 Planned Disposition: Home Anticipated Discharge Date: Discharge Date: Expected LOS: Initial Reviewer: [email or web address] Initial Review Date: 06/15/2019 Generated: 06/20/19 4:24 pm Patient Name: DANIA LANDRUM Page [phone] at 1524 All edits/amendments must be made on the electronic document DICTATION DATE: 06/20/191523 ADJUSTER PIANO ACTION: GEORGI 06/20/191523 RPT#: [id number] DC DATE: STATUS: ADM IN [facility] [address] [place] [address] END OF REPORT
--- NOTE | 2019-06-20 15:33 | MORECARE ---
CASE MANAGEMENT DISCHARGE SUMMARY PATIENT: DANIA LANDRUM UNIT: [id number] ADM DATE: 06/15/19 AGE: 54 : 69 SEX: M ROOM/BED: D.2135 AUTHOR: PITO KAYE PHYSICIAN: REFERRING PHYSICIAN: MARYANN HANDY MD DATE OF SERVICE: 06/20/19 Discharge Plan Patient Name: DANIA LANDRUM Facility: [facility]:[place] : 1965 Planned Disposition: Home Anticipated Discharge Date: Discharge Date: Expected LOS: Initial Reviewer: [email or web address] Initial Review Date: 06/15/2019 Generated: 06/20/19 4:33 pm DCPIA - Discharge Planning Initial Assessment Updated by [email or web address]: Orlando Pina on 06/20/19 3:32 pm * Is the patient Alert and Oriented? Yes * How many steps to enter\exit or inside your home? NONE * PCP DR. VEGA * Pharmacy [facility] [place] [facility] * Preadmission Environment Home Alone * ADLs Independent * Equipment Nebulizer Ostomy Supplies Oxygen * Other Equipment HOME AND PORTABLE OXYGEN, [facility] [place] IS PROVIDER * List name and contact numbers for known caregivers / representatives who currently or will assist patient after discharge: DANIA LANDRUM, BROTHER, IKER LANDRUM, DTR, * Verbal permission to speak to the caregivers and representatives has been obtained from the patient. N/A * Community resources currently utilized None * Please name any agencies selected above. NONE * Additional services required to return to the preadmission environment? No * Can the patient safely return to the preadmission environment? Yes * Has this patient been hospitalized within the prior 30 days at any hospital? No Last DP export: 06/20/19 2:24 Patient Name: DANIA LANDRUM Page [phone] at 1533 All edits/amendments must be made on the electronic document DICTATION DATE: 06/20/19 1533 ASIAN ART CURATOR: GEORGI 06/20/19 153 RPT#: [id number] DC DATE: STATUS: ADM IN [facility] [address] [facility] [place] [address] END OF REPORT
--- NOTE | 2019-06-20 15:42 | MORECARE ---
CASE MANAGEMENT DISCHARGE SUMMARY PATIENT: DANIA LANDRUM UNIT: [id number] ADM DATE: 06/15/19 AGE: 54 : 69 SEX: M ROOM/BED: D.5045 AUTHOR: VARGAS,DOC PHYSICIAN: REFERRING PHYSICIAN: MARYANN HANDY MD DATE OF SERVICE: 06/20/19 Discharge Plan Patient Name: DANIA LANDRUM Facility: [facility]:[place] : 1965 Planned Disposition: Home Anticipated Discharge Date: Discharge Date: Expected LOS: Initial Reviewer: [email or web address] Initial Review Date: 06/15/2019 Generated: 06/20/19 4:41 pm Comments DCP- Discharge Planning Updated by [email or web address]: Orlando Pina on 06/20/19 2:[address] Patient Name: DANIA LANDRUM Admission Status: ER Accout number: [id number] Admission Date: 06-15-2019 : 1965 Admission Diagnosis: Attending: MARYANN HANDY Current LOS: 5 Anticipated DC Date: Planned Disposition: Home Primary Insurance: MEDICAID [place] Discharge Planning Comments: CM MET WITH PT IN ROOM TO DISCUSS DISCHARGE PLANNING AND NEEDS. PT REPORTS LIVING AT HOME INDEPENDENTLY AND ALONE. PT HAS NEBULIZER, OSTOMY SUPPLIES, HOME AND PORTABLE OXYGEN FROM [facility]. PT HAS NO OUTSIDE SERVICES ASSISTING IN THE HOME. CM DISCUSSED AVAILABILITY OF HOME HEALTH, REHAB SERVICES AND MEDICAL EQUIPMENT. PT DENIES DISCHARGE NEEDS, REPORTS HIS BROTHER OR DAUGHTER WILL PICK HIM UP FOR DISCHARGE HOME. PT PLANS TO DISCHARGE HOME ALONE, FAMILY TO [place]. PT HAS NO ANTICIPATED DISCHARGE NEEDS. CM TO FOLLOW AND ASSIST NEEDED. School Counsellor: Orlando Pina DCPIA - Discharge Planning Initial Assessment Updated by [email or web address]: Orlando Pina on 06/20/19 3:32 pm * Is the patient Alert and Oriented? Yes * How many steps to enter\exit or inside your home? NONE * PCP DR. VEGA * Pharmacy [facility] [place] [facility] * Preadmission Environment Home Alone * ADLs Independent * Equipment Nebulizer Ostomy Supplies Oxygen * Other Equipment HOME AND PORTABLE OXYGEN, [facility] IS PROVIDER * List name and contact numbers for known caregivers / representatives who currently or will assist patient after discharge: DANIA LANDRUM, BROTHER, IKER LANDRUM, DTR, * Verbal permission to speak to the caregivers and representatives has been obtained from the patient. N/A * Community resources currently utilized None * Please name any agencies selected above. NONE * Additional services required to return to the preadmission environment? No * Can the patient safely return to the preadmission environment? Yes * Has this patient been hospitalized within the prior 30 days at any hospital? No Last DP export: 06/20/19 2:33 Patient Name: DANIA LANDRUM Page [phone] at 1542 All edits/amendments must be made on the electronic document DICTATION DATE: 06/20/191540 COVER SEAMER: GEORGI 06/20/191540 RPT#: [id number] [place] DATE: STATUS: ADM IN [facility] [address] [place] [address] END OF REPORT
[2019-06-20 18:05] VITALS: BP 103/71
--- NOTE | 2019-06-20 19:10 | NUR ---
RECEIVED REPORT, WILL ASSUME CARE OF PT, SLEEPING, NO DISTRESS NOTICED AT THIS TIME, CALL LIGHT IN REACH, BED IS LOW, SRX2, WILL CONTINUE PLAN OF CARE
[2019-06-20 20:00] VITALS: BP 106/73
[2019-06-21] VITALS (7 sets, daily range): BP systolic 101–123; BP diastolic 69–87
--- NOTE | 2019-06-21 03:59 | NUR ---
I have reviewed this patient and I concur with the Shift Assessment completed by the Licensed Practical Nurse today this shift.
[2019-06-21 05:26] LABS: BASOPHILS 0 % (0-2); EOSINOPHILS 0 % (0-7); HEMOGLOBIN 12.1 g/dL (13.5-17.5); IMMATURE GRANULOCYTES 0.1 % (0-5); MCV 90.3 fL (80.0-100.0); MEAN PLATELET VOLUME 9.3 fL (7.4-10.4); MONOCYTES 2.7 % (2-11); NEUTROPHILS 91.2 % (40-80); PLATELET COUNT 230 10x3/uL (130-400); RBC 4.32 10x6/uL (4.20-6.10); RDW 13.6 % (11.5-14.5)
[2019-06-21 05:59] LABS: CALC OSMOLALITY 281 mosm/kg (275-300); CALCIUM 7.9 mg/dL (8.5-10.1); CARBON DIOXIDE 38.2 mmol/L (21.0-32.0); CHLORIDE - SERUM 98 mmol/L (98-107); CREATININE - SERUM 0.6 mg/dL (0.6-1.3); POTASSIUM - SERUM 4.4 mmol/L (3.5-5.1); SODIUM 136 mmol/L (136-145); UREA NITROGEN 10 mg/dL (7-18); eGFR NON AFRICAN AMERICAN > 90 mL/min (90-120)
[2019-06-21 06:00] LABS: GLUCOSE 302 mg/dL (74-106)
[2019-06-21 06:09] LABS: HEPATITIS C ANTIBODY 0.2 (0.0-0.9)
--- NOTE | 2019-06-21 07:00 | NUR ---
RECEIVED REPORT. BEDSIDE SHIFT REPORT COMPLETE. ASSUMED CARE OF PATIENT. CALL LIGHT WITHIN REACH. PATIENT AWAKE, ALERT. SITTING UP IN BED. RESP EVEN AND UNLABORED. DENIES NEEDS AT THIS TIME. NO DISTRESS.
--- NOTE | 2019-06-21 08:54 | NUR ---
MEDICATED FOR PAIN AT THIS TIME. NO DISTRESS. PATIENT WAS OOB FOR AM MEAL AND HAS NOW RETURNED BACK TO BED. CALL LIGHT WITHIN REACH.
--- NOTE | 2019-06-21 11:41 | NUR ---
FSBS 183. 8 UNITS HUMULIN ADMINISTERED PER SLIDING SCALE. NO DISTRESS.
--- NOTE | 2019-06-21 16:44 | NUR ---
FSBS 170. 8 UNITS HUMULIN R INSULIN ADMINISTERED PER SLIDING SCALE. NO DISTRESS.
--- NOTE | 2019-06-21 18:10 | NUR ---
22 GAUGE IV REMOVED FROM RIGHT ANTERIOR FOREARM. NO BLEEDING FROM SITE. CATHETER TIP INTACT. TOLERATED IV REMOVAL WELL. NO DISTRESS. 22 GAUGE IV PLACED TO RIGHT HAND X 1 STICK. TOLERATED IV PLACEMENT WELL. TAPED, DATED, AND SECURED. NO DISTRESS.
--- NOTE | 2019-06-21 19:10 | NUR ---
BEDSIDE REPORT RECEIVED FROM DAY SHIFT, PT CARE ASSUMED. INTRODUCED SELF AND WROTE NAME ON BOARD. PT SITTING UP IN BED, VISITING WITH FAMILY AT BEDSIDE, AAOX4. DENIES ANY NEEDS AT THIS TIME. BED IN LOWEST POSITION, SR X2, CALL LIGHT WITHIN REACH. WILL CONTINUE TO MONITOR.
--- NOTE | 2019-06-21 22:20 | NUR ---
FSBS 300, PT REQUESTING ONLY 12 OF 16 UNITS OF HUMULIN, STATES HE DOES NOT WANT TO BOTTOM OUT TONIGHT SINCE HE ALSO HAS AN ORDER FOR HIS LANTUS THIS PM. C/O ABDOMINAL AND BACK PAIN OF 9, ON A SCALE OF 0-10. PRN NORCO AND NIGHT TIME MEDS ADMINISTERED, PER ORDER. OFFERED SNACK TO PT, PT ACCEPTED. DENIES ANY OTHER NEEDS AT THIS TIME. BED IN LOWEST POSITION, SR X2, CALL LIGHT WITHIN REACH. WILL CONTINUE TO MONITOR.
[2019-06-22] VITALS: BP 116/76
[2019-06-22 04:00] VITALS: BP 115/78
--- NOTE | 2019-06-22 07:43 | NUR ---
PATIENT IS AWAKE AND ALERT HE REQUEST COFFEE.
[2019-06-22 09:00] VITALS: BP 105/70
[2019-06-22] MEDS ORDERED: PREDNISONE20 MG PO (09:55)
--- NOTE | 2019-06-22 12:58 | NUR ---
DISCHARGE COMPLETE. TEACHING DONE, AND PAPERS SIGNED. IV REMOVED WITH CATHETER INTACT AND TELEMETRY REMOVED AND RETURNED. PATIENT WAS BROUGHT DOWNSTAIRS BY WHEELCHAIR AND WENT HOME WITH HIS SON. ALL PATIENT BELONGINGS WENT HOME WITH THE PATIENT.
--- NOTE | 2019-06-23 09:51 | MORECARE ---
CASE MANAGEMENT DISCHARGE SUMMARY PATIENT: DANIA LANDRUM UNIT: [id number] ADM DATE: 06/15/19 AGE: 54 : 69 SEX: M ROOM/BED: D.6755 AUTHOR: VARGAS,DOC PHYSICIAN: REFERRING PHYSICIAN: MARYANN HANDY MD DATE OF SERVICE: 06/23/19 Discharge Plan Patient Name: DANIA LANDRUM Facility: [facility]:[place] : 1965 Planned Disposition: Home Anticipated Discharge Date: 06/22/19 Discharge Date: 06/22/2019 Expected LOS: 7 Initial Reviewer: [email or web address] Initial Review Date: 06/15/2019 Generated: 06/23/19 10:51 am Comments DCP- Discharge Planning Updated by [email or web address]: Orlando Pina on 06/20/19 2:[address] Patient Name: DANIA LANDRUM Admission Status: ER Accout number: [id number] Admission Date: 06-15-2019 : 1965 Admission Diagnosis: Attending: MARYANN HANDY Current LOS: 5 Anticipated DC Date: Planned Disposition: Home Primary Insurance: MEDICAID [place] Discharge Planning Comments: CM MET WITH PT IN ROOM TO DISCUSS DISCHARGE PLANNING AND NEEDS. PT REPORTS LIVING AT HOME INDEPENDENTLY AND ALONE. PT HAS NEBULIZER, OSTOMY SUPPLIES, HOME AND PORTABLE OXYGEN FROM [facility] IN [facility]. PT HAS NO OUTSIDE SERVICES ASSISTING IN THE HOME. CM DISCUSSED AVAILABILITY OF HOME HEALTH, REHAB SERVICES AND MEDICAL EQUIPMENT. PT DENIES DISCHARGE NEEDS, REPORTS HIS BROTHER OR DAUGHTER WILL PICK HIM UP FOR DISCHARGE HOME. PT PLANS TO DISCHARGE HOME ALONE, FAMILY TO [place]. PT HAS NO ANTICIPATED DISCHARGE NEEDS. CM TO FOLLOW AND ASSIST NEEDED. Seed Laboratory Technician: Orlando Pina DCPIA - Discharge Planning Initial Assessment Updated by [email or web address]: Orlando Pnia on 06/20/19 3:32 pm * Is the patient Alert and Oriented? Yes * How many steps to enter\exit or inside your home? NONE * PCP DR. VEGA * Pharmacy [facility] [place] [facility] * Preadmission Environment Home Alone * ADLs Independent * Equipment Nebulizer Ostomy Supplies Oxygen * Other Equipment HOME AND PORTABLE OXYGEN, [facility] IN [facility] IS PROVIDER * List name and contact numbers for known caregivers / representatives who currently or will assist patient after discharge: DANIA LANDRUM, BROTHER, IKER SAWANTLEONIDIRINA, DTR, * Verbal permission to speak to the caregivers and representatives has been obtained from the patient. N/A * Community resources currently utilized None * Please name any agencies selected above. NONE * Additional services required to return to the preadmission environment? No * Can the patient safely return to the preadmission environment? Yes * Has this patient been hospitalized within the prior 30 days at any hospital? No Last DP export: 06/20/19 2:42 Patient Name: DANIA LANDRUM Page [phone] at 0951 All edits/amendments must be made on the electronic document DICTATION DATE: 06/23/19950 NAIL MAKING MACHINE TENDER: GEORGI 06/23/19950 RPT#: [id number] DC DATE:06/22/19 STATUS: DIS IN [facility] [address] [place] [address] END OF REPORT
== END 2019-06-22 13:07 | disposition home or self-care (01) | DRG 871 ==
LOC: D.ER 14:01 → D.M2 17:54
PROVIDERS: Family Medicine; Internal Medicine Gastroenterology; ADMIT Internal Medicine Nephrology; ATTEND Internal Medicine Nephrology
DX: A41.9 Sepsis, unspecified organism (principal); J96.21 Acute and chronic respiratory failure with hypoxia; J18.9 Pneumonia, unspecified organism; J96.22 Acute and chronic respiratory failure with hypercapnia; N17.9 Acute kidney failure, unspecified; F17.213 Nicotine dependence, cigarettes, with withdrawal; J47.0 Bronchiectasis with acute lower respiratory infection; E87.5 Hyperkalemia; E11.9 Type 2 diabetes mellitus without complications; I10 Essential (primary) hypertension; I48.91 Unspecified atrial fibrillation; J43.9 Emphysema, unspecified; Z86.73 Personal history of transient ischemic attack (TIA), and cerebral infarction without residual deficits; K59.00 Constipation, unspecified